=== PATIENT | male | born 2000 | race Caucasian/White ===

== ENCOUNTER 2020-07-07 14:41 | Observation (INO) ==
[2020-07-07] MEDS ORDERED: LORazepam 0.5 MG/1 ML VIAL IV STA (14:49)
[2020-07-07] MEDS ORDERED: SODIUM CHLORIDE 0.9% 1000ML 1,000 ML IV ONE (14:49)
--- NOTE | 2020-07-07 15:09 | Emergency Department Note ---
History of Present Illness General Chief complaint: Altered Mental Status Time Seen by Provider: 07/07/20 14:43 Source: patient and EMS History of Present Illness Provider complaint: Headache Onset (ago): hour(s) 1 Associated symptoms: + confusion and + headaches 20-year-old male presents emergency department via EMS for headache. Per EMS the patient was having slurred speech and right facial droop when they arrived. Patient has been having migraines and his recently placed on prednisone. Patient took his first dose of prednisone today and an hour later developed the symptoms. Patient is able to speak he is alert and oriented. Patient keeps repeatedly saying "I cannot do this" and keeps asking "am I schizophrenic?". Home Medications Medication Instructions Recorded Confirmed Type multivitamin 1 tab PO QAM 06/29/20 07/07/20 History Allergies Allergy/AdvReac Type Severity Reaction Status Date / Time No Known Allergies Allergy Unverified 06/29/20 13:10 Past Med/Surg History Medical History (Updated 07/07/20 @ 18:03 by Alden Calvo) ADHD Migraine No pertinent family history Surgical History (Updated 07/07/20 @ 15:34 by Alden Calvo) No pertinent past surgical history Social History Smoking Status: Current some day smoker Tobacco Type: E-cigarettes / Vaping Feels Safe at Home: Yes Review of Systems Unobtainable due to cognitive status Physical Exam Vital Signs Vital Signs - 24 hr 07/07/20 14:41 07/07/20 14:50 Temperature 36.8 C Temperature Source Oral Pulse Rate 102 H 102 H Respiratory Rate 20 20 Respiratory Effort / Characteristics Non-Labored Respiratory Depth Normal Blood Pressure 142/89 H Blood Pressure Mean 106 Pulse Oximetry 100 100 Oxygen Delivery Method Room Air Room Air Sepsis Recent Fever Within 48 Hours No Sepsis New/Unexplained Change in Mental Status N/A Sepsis Action Taken by Nursing No Action Required Physical Exam HENT: Exam performed. - Head: Normocephalic and atraumatic. - Right Ear: External ear normal. No mastoid tenderness. - Left Ear: External ear normal. No mastoid tenderness. - Mouth/Throat: The oropharynx is clear and moist. No trismus in the jaw. No dental abscesses or uvula swelling. No oropharyngeal exudate or tonsillar abscesses. EYES: Conjunctivae and EOM are normal. Pupils are equal, round, and reactive to light. Right eye exhibits no discharge. Left eye exhibits no discharge. No scleral icterus. NECK: Normal range of motion. Neck supple. No JVD present. No spinous process tenderness present. No carotid bruit present. No rigidity. No tracheal deviation and normal range of motion present. No Brudzinski's sign and no Kernig's sign noted. CV: Normal rate, regular rhythm, normal heart sounds and intact distal pulses. There is no peripheral edema. Palpable radial pulses bue. PULM/CHEST: Effort normal and breath sounds normal. No respiratory distress. No stridor. He has no wheezes. He has no rales. - Chest Wall: He exhibits no tenderness. ABD: The abdomen is soft. Bowel sounds are normal. He has no distension. No mass is present. There is no tenderness. There is no rebound, no guarding, no Watson's sign and no tenderness at McBurney's point. Rovsig negative. MUSC/SKEL: Normal range of motion. There is no peripheral edema, tenderness or deformity. LYMPH: No cervical adenopathy. NEURO: He is alert but appears confused. He has normal strength. No cranial nerve deficit or sensory deficit. GCS eye subscore is 4. GCS verbal subscore is 4. GCS motor subscore is 6. Cerebellar tests wnl. Patient appears to have difficulty speaking just keeps repeating "I cannot do this". SKIN: Skin is warm and dry. He is not diaphoretic. PSYCH: Patient appears anxious Course Course 1443: The patient was evaluated in room C1. A complete history and physical exam was performed Cardiac monitoring: An order was placed for continuous cardiac monitoring. The monitor shows a rate of 97 with sinus rhythm EMR reviewed. Patient was seen in the emergency department June 29, [address] of the head at that time was negative. 1503: Patient's roommate is at bedside now. Patient roommate states the patient was napping and came out of his room and said he was unable to stand up and fell to the floor. The patient reported to the roommate that he cannot feel the right side of his body and was have difficulty walking. Roommate reports his symptoms gotten better but then got worse again when EMS arrived. 1550: Vital signs stable. On reassessment, the patient is texting on his phone and asking me if I can fix the TV so he can watch golf. He is having no dysarthria, no expressive aphasia, no motor deficit, no meningeal signs. Patient states he feels much better after receiving Ativan in the IV. Patient states "I feel 100 times better and feel like I can think now". Imaging is still pending. Patient was asked to give urine sample. 1603: Spoke with the patient's father [phone] gave him update about the patient. Labs are still pending. Urine still pending. Once labs and urine are back we will discuss with neurology. 1630: Patient now reporting that his headache is returning. CTs and CT angios are within normal limits. We will give the patient migraine cocktail for possible migraine Toradol, Benadryl, and Reglan. 1738: Vital signs stable. On reassessment patient reports his headache has resolved status post Reglan IV, Benadryl IV, Toradol IV, and normal saline bolus. On repeat physical exam no meningeal signs, no focal neurological deficit. Patient is asking to eat as he states he is hungry. Prolactin is within normal limits. Lactate mildly elevated at 2.4. It is thought that the patient could be suffering from a complex migraine versus a partial seizure given his symptoms and the elevated lactic acid level. There is no concern for infectious process, no concern for meningitis/encephalitis given that the patient is afebrile, has no meningeal signs, white blood cell count 11.2, and that the patient's symptoms have improved significantly in the emergency department status post Ativan 0.5 mg, Reglan IV push, Benadryl IV push, and T oradol IV push. Patient has no physical exam findings consistent with meningitis including no nuchal rigidity. I did discuss the case with neurology on-call Dr. Maldonado and she recommends obtaining an MRI of the brain with and without contrast. I did discuss my concern with Dr. Carr about the patient having possible subclinical seizures versus complex migraines. After discussing with her, the decision was made that it would be best to admit the patient into the hospital overnight to get the MRI so that she could evaluate the patient in the morning and order a possible EEG. No antiepileptics at this time per Dr. Carr. I did discuss the case with the patient's father [phone] explained to him the plan to Dr. Carr and I have created. He is in total agreement and stated he was going to request for an EEG to be done on his son. I did discuss the plan with the patient who is also in agreement. Discussed the case with Dr. Ricks [facility] Alicia hospitalist who will evaluate the patient for admission. 1802: Discussed the case with Dr. Dale who will evaluate the patient for admission. Administered Medications Discontinued Medications Diphenhydramine HCl (Diphenhydramine 50 Mg/Ml Vial) 25 mg IV NOW STA Stop: 07/07/20 16:29 Last Admin: 07/07/20 16:39 Dose: 25 mg Documented by: [id number] Sodium Chloride (Nss 1000ml) 1,000 mls @ 999 mls/hr IV .Q1H1M ONE Stop: 07/07/20 15:49 Last Infusion: 07/07/20 16:11 Dose: 0 mls/hr Documented by: [id number] Admin: 07/07/20 15:06 Dose: 999 mls/hr Documented by: [id number] Lorazepam (Ativan) 0.5 mg in 1 mls @ 1 mls/min IV NOW STA Stop: 07/07/20 14:50 Last Admin: 07/07/20 15:05 Dose: 1 mls/min Documented by: [id number] Ioversol (Optiray 320 125ml) 117 ml IV ONCE ONE Stop: 07/07/20 15:27 Last Admin: 07/07/20 15:26 Dose: 117 ml Documented by: [id number] Ketorolac Tromethamine (Ketorolac Tromethamine 15 Mg/Ml Vial) 15 mg IV NOW STA Stop: 07/07/20 16:29 Last Admin: 07/07/20 16:39 Dose: 15 mg Documented by: [id number] Metoclopramide HCl (Metoclopramide Hcl Inj 5 Mg/Ml 2 Ml Vial) 5 mg IV ONE ONE Stop: 07/07/20 16:29 Last Admin: 07/07/20 16:39 Dose: 5 mg Documented by: [id number] Medical Decision Making Laboratory Data Result diagrams: 07/07/20 15:06 07/07/20 15:06 Lab Results 07/07/20 07/07/20 07/07/20 Range/Units 15:06 15:06 15:06 WBC 11.23 H (4.8-10.8) K/uL RBC 5.32 (4.7-6.1) M/uL Hgb 15.6 (14.0-18.0) g/dL Hct 45.7 (42-52) % MCV 85.9 (80-100) fL MCH 29.3 (25-34) pg MCHC 34.1 (32-36) g/dL RDW Std Deviation 42.9 (36.4-46.3) fL RDW Coeff of Marce 13.7 (11.5-14.5) % Plt Count 267 (130-400) K/uL MPV 9.9 (7.4-10.4) fL Immature Gran % (Auto) 0.3 % Neut % (Auto) 49.9 % Lymph % (Auto) 43.4 % Weber % (Auto) 5.4 % Eos % (Auto) 0.6 % Baso % (Auto) 0.4 % Neut # (Auto) 5.61 (1.4-6.5) K/uL Lymph # (Auto) 4.87 H (1.2-3.4) K/uL Weber # (Auto) 0.61 H (0.11-0.59) K/uL Eos # (Auto) 0.07 (0-0.5) K/uL Baso # (Auto) 0.04 (0-0.2) K/uL Immature Gran # (Auto) 0.03 H (0.00-0.02) K/uL PT 10.6 (9.0-12.0) Seconds INR 1.0 (0.9-1.1) APTT 24.7 (21.0-31.0) Seconds PTT Ratio 0.9 Sodium (136-145) mmol/L Potassium (3.5-5.1) mmol/L Chloride (98-107) mmol/L Carbon Dioxide (21-32) mmol/L Anion Gap (3-11) BUN (7-18) mg/dl Creatinine (0.6-1.4) mg/dl Est Cr Clr Drug Dosing ml/min Est GFR ( Amer) Est GFR (Non-Af Amer) BUN/Creatinine Ratio (10-20) Glucose (70-99) mg/dl Lactate (0.4-2.0) mmol/L Calcium (8.5-10.1) mg/dl Magnesium (1.8-2.4) mg/dl Total Bilirubin (0.2-1) mg/dl AST (15-37) U/L ALT (12-78) U/L Alkaline Phosphatase (45-117) U/L Troponin I (0-0.045) ng/ml Total Protein (6.4-8.2) gm/dl Albumin (3.4-5.0) gm/dl Globulin (2.5-4.0) gm/dl Albumin/Globulin Ratio (0.9-2) Prolactin ng/ml Urine Color Urine Appearance (Clear) Urine pH (4.5-7.5) Ur Specific [place] (1.000-1.030) Urine Protein (Negative) Urine Glucose (UA) (Negative) Urine Ketones (Negative) Urine Blood (Negative) Urine Nitrite (Negative) Urine Bilirubin (Negative) Urine Urobilinogen (Negative) Ur Leukocyte Esterase (Negative) Urine Opiates Screen (Neg) Ur Methadone, Qual (Neg) Urine Barbiturates (Neg) Ur Phencyclidine (PCP) (Neg) U Amphetamin/Meth Scrn (Neg) MDMA (Ecstasy) Screen (Neg) U Benzodiazepines Scrn (Neg) Ur Cocaine Metabolite (Neg) U Marijuana (THC) Screen (Neg) Ethyl Alcohol mg/dL (0-3) mg/dl COVID-19 Eval Order SARS-CoV-2 (PCR) (Negative) Influenza Type A (PCR) (Neg) Influenza Type B (PCR) (Neg) RSV (RT-PCR) (Neg) Blood Type B Positive Antibody Screen NEGATIVE 07/07/20 07/07/20 07/07/20 Range/Units 15:06 15:07 15:45 WBC (4.8-10.8) K/uL RBC (4.7-6.1) M/uL Hgb (14.0-18.0) g/dL Hct (42-52) % MCV (80-100) fL MCH (25-34) pg MCHC (32-36) g/dL RDW Std Deviation (36.4-46.3) fL RDW Coeff of Marce (11.5-14.5) % Plt Count (130-400) K/uL MPV (7.4-10.4) fL Immature Gran % (Auto) % Neut % (Auto) % Lymph % (Auto) % Weber % (Auto) % Eos % (Auto) % Baso % (Auto) % Neut # (Auto) (1.4-6.5) K/uL Lymph # (Auto) (1.2-3.4) K/uL Weber # (Auto) (0.11-0.59) K/uL Eos # (Auto) (0-0.5) K/uL Baso # (Auto) (0-0.2) K/uL Immature Gran # (Auto) (0.00-0.02) K/uL PT (9.0-12.0) Seconds INR (0.9-1.1) APTT (21.0-31.0) Seconds PTT Ratio Sodium 135 L (136-145) mmol/L Potassium 3.8 (3.5-5.1) mmol/L Chloride 103 (98-107) mmol/L Carbon Dioxide 24 (21-32) mmol/L Anion Gap 8.0 (3-11) BUN 14 (7-18) mg/dl Creatinine 0.91 (0.6-1.4) mg/dl Est Cr Clr Drug Dosing 135.6 ml/min Est GFR ( Amer) 138.2 Est GFR (Non-Af Amer) 119.2 BUN/Creatinine Ratio 15.3 (10-20) Glucose 139 H (70-99) mg/dl Lactate (0.4-2.0) mmol/L Calcium 10.2 H (8.5-10.1) mg/dl Magnesium 2.0 (1.8-2.4) mg/dl Total Bilirubin 0.3 (0.2-1) mg/dl AST 19 (15-37) U/L ALT 33 (12-78) U/L Alkaline Phosphatase 68 (45-117) U/L Troponin I < 0.015 (0-0.045) ng/ml Total Protein 8.8 H (6.4-8.2) gm/dl Albumin 4.7 (3.4-5.0) gm/dl Globulin 4.1 H (2.5-4.0) gm/dl Albumin/Globulin Ratio 1.2 (0.9-2) Prolactin ng/ml Urine Color Urine Appearance (Clear) Urine pH (4.5-7.5) Ur Specific [place] (1.000-1.030) Urine Protein (Negative) Urine Glucose (UA) (Negative) Urine Ketones (Negative) Urine Blood (Negative) Urine Nitrite (Negative) Urine Bilirubin (Negative) Urine Urobilinogen (Negative) Ur Leukocyte Esterase (Negative) Urine Opiates Screen (Neg) Ur Methadone, Qual (Neg) Urine Barbiturates (Neg) Ur Phencyclidine (PCP) (Neg) U Amphetamin/Meth Scrn (Neg) MDMA (Ecstasy) Screen (Neg) U Benzodiazepines Scrn (Neg) Ur Cocaine Metabolite (Neg) U Marijuana (THC) Screen (Neg) Ethyl Alcohol mg/dL < 3.0 (0-3) mg/dl COVID-19 Eval Order [facility]sv at [facility] SARS-CoV-2 (PCR) (Negative) Influenza Type A (PCR) (Neg) Influenza Type B (PCR) (Neg) RSV (RT-PCR) (Neg) Blood Type Antibody Screen 07/07/20 07/07/20 07/07/20 Range/Units 15:45 16:13 16:13 WBC (4.8-10.8) K/uL RBC (4.7-6.1) M/uL Hgb (14.0-18.0) g/dL Hct (42-52) % MCV (80-100) fL MCH (25-34) pg MCHC (32-36) g/dL RDW Std Deviation (36.4-46.3) fL RDW Coeff of Marce (11.5-14.5) % Plt Count (130-400) K/uL MPV (7.4-10.4) fL Immature Gran % (Auto) % Neut % (Auto) % Lymph % (Auto) % Weber % (Auto) % Eos % (Auto) % Baso % (Auto) % Neut # (Auto) (1.4-6.5) K/uL Lymph # (Auto) (1.2-3.4) K/uL Weber # (Auto) (0.11-0.59) K/uL Eos # (Auto) (0-0.5) K/uL Baso # (Auto) (0-0.2) K/uL Immature Gran # (Auto) (0.00-0.02) K/uL PT (9.0-12.0) Seconds INR (0.9-1.1) APTT (21.0-31.0) Seconds PTT Ratio Sodium (136-145) mmol/L Potassium (3.5-5.1) mmol/L Chloride (98-107) mmol/L Carbon Dioxide (21-32) mmol/L Anion Gap (3-11) BUN (7-18) mg/dl Creatinine (0.6-1.4) mg/dl Est Cr Clr Drug Dosing ml/min Est GFR ( Amer) Est GFR (Non-Af Amer) BUN/Creatinine Ratio (10-20) Glucose (70-99) mg/dl Lactate (0.4-2.0) mmol/L Calcium (8.5-10.1) mg/dl Magnesium (1.8-2.4) mg/dl Total Bilirubin (0.2-1) mg/dl AST (15-37) U/L ALT (12-78) U/L Alkaline Phosphatase (45-117) U/L Troponin I (0-0.045) ng/ml Total Protein (6.4-8.2) gm/dl Albumin (3.4-5.0) gm/dl Globulin (2.5-4.0) gm/dl Albumin/Globulin Ratio (0.9-2) Prolactin ng/ml Urine Color Yellow Urine Appearance Clear (Clear) Urine pH 7.5 (4.5-7.5) Ur Specific [place] 1.041 H (1.000-1.030) Urine Protein Negative (Negative) Urine Glucose (UA) Negative (Negative) Urine Ketones Negative (Negative) Urine Blood Negative (Negative) Urine Nitrite Negative (Negative) Urine Bilirubin Negative (Negative) Urine Urobilinogen Negative (Negative) Ur Leukocyte Esterase Negative (Negative) Urine Opiates Screen Neg (Neg) Ur Methadone, Qual Neg (Neg) Urine Barbiturates Neg (Neg) Ur Phencyclidine (PCP) Neg (Neg) U Amphetamin/Meth Scrn Neg (Neg) MDMA (Ecstasy) Screen Neg (Neg) U Benzodiazepines Scrn Neg (Neg) Ur Cocaine Metabolite Neg (Neg) U Marijuana (THC) Screen Neg (Neg) Ethyl Alcohol mg/dL (0-3) mg/dl COVID-19 Eval Order SARS-CoV-2 (PCR) NEGATIVE (Negative) Influenza Type A (PCR) Negative (Neg) Influenza Type B (PCR) Negative (Neg) RSV (RT-PCR) Negative (Neg) Blood Type Antibody Screen 07/07/20 07/07/20 Range/Units 16:18 16:18 WBC (4.8-10.8) K/uL RBC (4.7-6.1) M/uL Hgb (14.0-18.0) g/dL Hct (42-52) % MCV (80-100) fL MCH (25-34) pg MCHC (32-36) g/dL RDW Std Deviation (36.4-46.3) fL RDW Coeff of Marce (11.5-14.5) % Plt Count (130-400) K/uL MPV (7.4-10.4) fL Immature Gran % (Auto) % Neut % (Auto) % Lymph % (Auto) % Weber % (Auto) % Eos % (Auto) % Baso % (Auto) % Neut # (Auto) (1.4-6.5) K/uL Lymph # (Auto) (1.2-3.4) K/uL Weber # (Auto) (0.11-0.59) K/uL Eos # (Auto) (0-0.5) K/uL Baso # (Auto) (0-0.2) K/uL Immature Gran # (Auto) (0.00-0.02) K/uL PT (9.0-12.0) Seconds INR (0.9-1.1) APTT (21.0-31.0) Seconds PTT Ratio Sodium (136-145) mmol/L Potassium (3.5-5.1) mmol/L Chloride (98-107) mmol/L Carbon Dioxide (21-32) mmol/L Anion Gap (3-11) BUN (7-18) mg/dl Creatinine (0.6-1.4) mg/dl Est Cr Clr Drug Dosing ml/min Est GFR ( Amer) Est GFR (Non-Af Amer) BUN/Creatinine Ratio (10-20) Glucose (70-99) mg/dl Lactate 2.4 H* (0.4-2.0) mmol/L Calcium (8.5-10.1) mg/dl Magnesium (1.8-2.4) mg/dl Total Bilirubin (0.2-1) mg/dl AST (15-37) U/L ALT (12-78) U/L Alkaline Phosphatase (45-117) U/L Troponin I (0-0.045) ng/ml Total Protein (6.4-8.2) gm/dl Albumin (3.4-5.0) gm/dl Globulin (2.5-4.0) gm/dl Albumin/Globulin Ratio (0.9-2) Prolactin 12.53 ng/ml Urine Color Urine Appearance (Clear) Urine pH (4.5-7.5) Ur Specific [place] (1.000-1.030) Urine Protein (Negative) Urine Glucose (UA) (Negative) Urine Ketones (Negative) Urine Blood (Negative) Urine Nitrite (Negative) Urine Bilirubin (Negative) Urine Urobilinogen (Negative) Ur Leukocyte Esterase (Negative) Urine Opiates Screen (Neg) Ur Methadone, Qual (Neg) Urine Barbiturates (Neg) Ur Phencyclidine (PCP) (Neg) U Amphetamin/Meth Scrn (Neg) MDMA (Ecstasy) Screen (Neg) U Benzodiazepines Scrn (Neg) Ur Cocaine Metabolite (Neg) U Marijuana (THC) Screen (Neg) Ethyl Alcohol mg/dL (0-3) mg/dl COVID-19 Eval Order SARS-CoV-2 (PCR) (Negative) Influenza Type A (PCR) (Neg) Influenza Type B (PCR) (Neg) RSV (RT-PCR) (Neg) Blood Type Antibody Screen Imaging Data Radiologist's Impression: Head CT 07/07/20 14:[address], HEAD & NECK CTA HISTORY: Right-sided numbness. Difficulty speaking. Stroke Like Symptoms TECHNIQUE: Multiaxial CT images of the head were performed both before and after the intravenous administration of contrast to evaluate the major cerebral vessels. Multiaxial CT images of the neck were also performed following the intravenous administration of contrast to evaluate the major cervical vessels. Maximum intensity projection images were also obtained. A dose lowering technique was utilized adhering to the principles of ALARA. COMPARISON: Head CT 06/29/2020. FINDINGS: Head CT: There is no mass, hematoma, midline shift, or acute infarct. Stable retention cyst within the right sphenoid sinus. Head CTA: Visualized intracranial internal carotid arteries, distal vertebral arteries, and basilar artery are widely patent. There is no significant stenosis, occlusion, or aneurysm seen within the bilateral ACAs, MCAs, or occupational therapy co director. The major dural venous sinuses are patent. Neck CTA: The aortic arch and proximal great vessels are widely patent. There is no significant stenosis, occlusion, or dissection identified within the bilateral common carotid, internal carotid, or vertebral arteries. IMPRESSION: 1. No significant stenosis, occlusion, or aneurysm within the [place]. 2. No significant stenosis, occlusion, or dissection identified within the carotid or vertebral arteries. 3. No acute intracranial abnormality. ACT 112: Negative or not required by law. Electronically signed by: Andrew Johnson M.D. 07/07/2020 3:48 PM Head CTA 07/07/20 14:[address], HEAD & NECK CTA HISTORY: Right-sided numbness. Difficulty speaking. Stroke Like Symptoms TECHNIQUE: Multiaxial CT images of the head were performed both before and after the intravenous administration of contrast to evaluate the major cerebral vessels. Multiaxial CT images of the neck were also performed following the intravenous administration of contrast to evaluate the major cervical vessels. Maximum intensity projection images were also obtained. A dose lowering technique was utilized adhering to the principles of ALARA. COMPARISON: Head CT 06/29/2020. FINDINGS: Head CT: There is no mass, hematoma, midline shift, or acute infarct. Stable retention cyst within the right sphenoid sinus. Head CTA: Visualized intracranial internal carotid arteries, distal vertebral arteries, and basilar artery are widely patent. There is no significant stenosis, occlusion, or aneurysm seen within the bilateral ACAs, MCAs, or occupational therapy co director. The major dural venous sinuses are patent. Neck CTA: The aortic arch and proximal great vessels are widely patent. There is no significant stenosis, occlusion, or dissection identified within the bilateral common carotid, internal carotid, or vertebral arteries. IMPRESSION: 1. No significant stenosis, occlusion, or aneurysm within the [place]. 2. No significant stenosis, occlusion, or dissection identified within the carotid or vertebral arteries. 3. No acute intracranial abnormality. ACT 112: Negative or not required by law. Electronically signed by: Andrew Johnson M.D. 07/07/2020 3:48 PM Neck CTA 07/07/20 14:[address], HEAD & NECK CTA HISTORY: Right-sided numbness. Difficulty speaking. Stroke Like Symptoms TECHNIQUE: Multiaxial CT images of the head were performed both before and after the intravenous administration of contrast to evaluate the major cerebral vessels. Multiaxial CT images of the neck were also performed following the intravenous administration of contrast to evaluate the major cervical vessels. Maximum intensity projection images were also obtained. A dose lowering techniqu e was utilized adhering to the principles of ALARA. COMPARISON: Head CT 06/29/2020. FINDINGS: Head CT: There is no mass, hematoma, midline shift, or acute infarct. Stable retention cyst within the right sphenoid sinus. Head CTA: Visualized intracranial internal carotid arteries, distal vertebral arteries, and basilar artery are widely patent. There is no significant stenosis, occlusion, or aneurysm seen within the bilateral ACAs, MCAs, or occupational therapy co director. The major dural venous sinuses are patent. Neck CTA: The aortic arch and proximal great vessels are widely patent. There is no significant stenosis, occlusion, or dissection identified within the bilateral common carotid, internal carotid, or vertebral arteries. IMPRESSION: 1. No significant stenosis, occlusion, or aneurysm within the [place]. 2. No significant stenosis, occlusion, or dissection identified within the carotid or vertebral arteries. 3. No acute intracranial abnormality. ACT 112: Negative or not required by law. Electronically signed by: Andrew Johnson M.D. 07/07/2020 3:48 PM ECG Data Indication: + other (CASPER) Rate (beats per minute): 97 Rhythm: + normal sinus ECG Intervals/blocks: + Normal QRS, + Normal NV and + Normal QT-c ECG ST segments: + Normal ST segments MDM Narrative 1443: The patient was evaluated in room C1. A complete history and physical exam was performed Cardiac monitoring: An order was placed for continuous cardiac monitoring. The monitor shows a rate of 97 with sinus rhythm EMR reviewed. Patient was seen in the emergency department June 29, [address] of the head at that time was negative. 1503: Patient's roommate is at bedside now. Patient roommate states the patient was napping and came out of his room and said he was unable to stand up and fell to the floor. The patient reported to the roommate that he cannot feel the right side of his body and was have difficulty walking. Roommate reports his symptoms gotten better but then got worse again when EMS arrived. 1550: Vital signs stable. On reassessment, the patient is texting on his phone and asking me if I can fix the TV so he can watch golf. He is having no dysarthria, no expressive aphasia, no motor deficit, no meningeal signs. Patient states he feels much better after receiving Ativan in the IV. Patient states "I feel 100 times better and feel like I can think now". Imaging is still pending. Patient was asked to give urine sample. 1603: Spoke with the patient's father [phone] gave him update about the hector ent. Labs are still pending. Urine still pending. Once labs and urine are back we will discuss with neurology. 1630: Patient now reporting that his headache is returning. CTs and CT angios are within normal limits. We will give the patient migraine cocktail for possible migraine Toradol, Benadryl, and Reglan. 1738: Vital signs stable. On reassessment patient reports his headache has resolved status post Reglan IV, Benadryl IV, Toradol IV, and normal saline bolus. On repeat physical exam no meningeal signs, no focal neurological deficit. Patient is asking to eat as he states he is hungry. Prolactin is within normal limits. Lactate mildly elevated at 2.4. It is thought that the patient could be suffering from a complex migraine versus a partial seizure given his symptoms and the elevated lactic acid level. There is no concern for infectious process, no concern for meningitis/encephalitis given that the patient is afebrile, has no meningeal signs, white blood cell count 11.2, and that the patient's symptoms have improved significantly in the emergency department status post Ativan 0.5 mg, Reglan IV push, Benadryl IV push, and Toradol IV push. Patient has no physical exam findings consistent with meningitis including no nuchal rigidity. I did discuss the case with neurology on-call Dr. Maldonado and she recommends obtaining an MRI of the brain with and without contrast. I did discuss my concern with Dr. Carr about the patient having possible subclinical seizures versus complex migraines. After discussing with her, the decision was made that it would be best to admit the patient into the hospital overnight to get the MRI so that she could evaluate the patient in the morning and order a possible EEG. No antiepileptics at this time per Dr. Carr. I did discuss the case with the patient's father [phone] explained to him the plan to Dr. Carr and I have created. He is in total agreement and stated he was going to request for an EEG to be done on his son. I did discuss the plan with the patient who is also in agreement. Discussed the case with Dr. Ricks [facility] hospitalist who will evaluate the patient for admission. 1802: Discussed the case with Dr. Dale who will evaluate the patient for admission. Impression & Plan Headache, Seizure-like activity Discharge Plan Visit Data Chief Complaint: Altered Mental Status ED Provider: Alden Calvo Discharge Problem: Headache, Seizure-like activity Patient Disposition: Admitted As Inpatient Forms Stand Alone Forms: My [facility] Prescriptions Prescriptions: No Action multivitamin Tablet 1 tab PO QAM RF: 0 Referrals Referrals: [facility] [Primary Care Provider] - Discharge Problem: Headache Qualifiers: Headache type: unspecified Headache chronicity pattern: unspecified pattern Intractability: not intractable Qualified Code(s): R51.9 - Headache, unspecified
[2020-07-07 15:20] LABS: Basophils # (auto) 0.04 K/uL (0-0.2); Basophils % (auto) 0.4 %; Eosinophils # (auto) 0.07 K/uL (0-0.5); Eosinophils % (auto) 0.6 %; Hematocrit (blood only) 45.7 % (42-52); Hemoglobin 15.6 g/dL (14.0-18.0); Immature Granulocytes # (auto) 0.03 K/uL (0.00-0.02); Immature Granulocytes % (auto) 0.3 %; Lymphocytes # (auto) 4.87 K/uL (1.2-3.4); Lymphocytes % (auto) 43.4 %; Mean Corpuscular Hemoglobin 29.3 pg (25-34); Mean Corpuscular Hgb Conc 34.1 g/dL (32-36); Mean Corpuscular Volume 85.9 fL (80-100); Mean Platelet Volume 9.9 fL (7.4-10.4); Monocytes # (auto) 0.61 K/uL (0.11-0.59); Monocytes % (auto) 5.4 %; Neutrophils # (auto) 5.61 K/uL (1.4-6.5); Neutrophils % (auto) 49.9 %; Platelet Count 267 K/uL (130-400); RDW Coefficient of Variation 13.7 % (11.5-14.5); RDW Standard Deviation 42.9 fL (36.4-46.3); Red Blood Count 5.32 M/uL (4.7-6.1); White Blood Count 11.23 K/uL (4.8-10.8)
[2020-07-07] MEDS ORDERED: OPTIRAY 320 125ml IV ONE (15:26)
[2020-07-07 15:44] LABS: Alanine Aminotransferase 33 U/L (12-78); Albumin Level 4.7 gm/dl (3.4-5.0); Aspartate Aminotransferase 19 U/L (15-37); BUN Creatinine Ratio 15.3 (10-20); Blood Urea Nitrogen 14 mg/dl (7-18); Calcium 10.2 mg/dl (8.5-10.1); Carbon Dioxide 24 mmol/L (21-32); Chloride 103 mmol/L (98-107); Creatinine Clr Calc Pharmacy 135.6 ml/min; Est GFR (African American) 138.2; Est GFR (Non-African American) 119.2; Glucose 139 mg/dl (70-99); Potassium 3.8 mmol/L (3.5-5.1); Sodium 135 mmol/L (136-145)
[2020-07-07 15:49] LABS: Albumin Globulin Ratio 1.2 (0.9-2); Alkaline Phosphatase 68 U/L (45-117); Bilirubin,Total 0.3 mg/dl (0.2-1); Globulin 4.1 gm/dl (2.5-4.0); Total Protein 8.8 gm/dl (6.4-8.2); Troponin I < 0.015 ng/ml (0-0.045)
--- NOTE | 2020-07-07 15:49 | CT Scan Report ---
NONCONTRAST HEAD CT, HEAD & NECK CTA HISTORY: Right-sided numbness. Difficulty speaking. Stroke Like Symptoms TECHNIQUE: Multiaxial CT images of the head were performed both before and after the intravenous admi nistration of contrast to evaluate the major cerebral vessels. Multiaxial CT images of the neck were also performed following the intravenous administration of contrast to evaluate the major cervical ve ssels. Maximum intensity projection images were also obtained. A dose lowering technique was utilized adhering to the principles of ALARA. COMPARISON: Head CT 06/29/2020. FINDINGS: Head CT: There is no mass, hematoma, midline shift, or acute infarct. Stable retention cyst within th e right sphenoid sinus. Head CTA: Visualized intracranial internal carotid arteries, distal vertebral arteries, and basilar a rtery are widely patent. There is no significant stenosis, occlusion, or aneurysm seen within the pedro ateral ACAs, MCAs, or wet pour mixer. The major dural venous sinuses are patent. Neck CTA: The aortic arch and proximal great vessels are widely patent. There is no significant sten osis, occlusion, or dissection identified within the bilateral common carotid, internal carotid, or v ertebral arteries. IMPRESSION: 1. No significant stenosis, occlusion, or aneurysm within the [place]. 2. No significant stenosis, occlusion, or dissection identified within the carotid or vertebral arter ies. 3. No acute intracranial abnormality. ACT 112: Negative or not required by law. Electronically signed by: Andrew Johnson M.D. 07/07/2020 3:48 PM
--- NOTE | 2020-07-07 15:49 | CT Scan Report ---
NONCONTRAST HEAD CT, HEAD & NECK CTA HISTORY: Right-sided numbness. Difficulty speaking. Stroke Like Symptoms TECHNIQUE: Multiaxial CT images of the head were performed both before and after the intravenous admi nistration of contrast to evaluate the major cerebral vessels. Multiaxial CT images of the neck were also performed following the intravenous administration of contrast to evaluate the major cervical ve ssels. Maximum intensity projection images were also obtained. A dose lowering technique was utilized adhering to the principles of ALARA. COMPARISON: Head CT 06/29/2020. FINDINGS: Head CT: There is no mass, hematoma, midline shift, or acute infarct. Stable retention cyst within th e right sphenoid sinus. Head CTA: Visualized intracranial internal carotid arteries, distal vertebral arteries, and basilar a rtery are widely patent. There is no significant stenosis, occlusion, or aneurysm seen within the pedro ateral ACAs, MCAs, or credit risk specialist. The major dural venous sinuses are patent. Neck CTA: The aortic arch and proximal great vessels are widely patent. There is no significant sten osis, occlusion, or dissection identified within the bilateral common carotid, internal carotid, or v ertebral arteries. IMPRESSION: 1. No significant stenosis, occlusion, or aneurysm within the [place]. 2. No significant stenosis, occlusion, or dissection identified within the carotid or vertebral arter ies. 3. No acute intracranial abnormality. ACT 112: Negative or not required by law. Electronically signed by: Andrew Johnson M.D. 07/07/2020 3:48 PM
--- NOTE | 2020-07-07 15:49 | CT Scan Report ---
NONCONTRAST HEAD CT, HEAD & NECK CTA HISTORY: Right-sided numbness. Difficulty speaking. Stroke Like Symptoms TECHNIQUE: Multiaxial CT images of the head were performed both before and after the intravenous admi nistration of contrast to evaluate the major cerebral vessels. Multiaxial CT images of the neck were also performed following the intravenous administration of contrast to evaluate the major cervical ve ssels. Maximum intensity projection images were also obtained. A dose lowering technique was utilized adhering to the principles of ALARA. COMPARISON: Head CT 06/29/2020. FINDINGS: Head CT: There is no mass, hematoma, midline shift, or acute infarct. Stable retention cyst within th e right sphenoid sinus. Head CTA: Visualized intracranial internal carotid arteries, distal vertebral arteries, and basilar a rtery are widely patent. There is no significant stenosis, occlusion, or aneurysm seen within the pedro ateral ACAs, MCAs, or stock raiser. The major dural venous sinuses are patent. Neck CTA: The aortic arch and proximal great vessels are widely patent. There is no significant sten osis, occlusion, or dissection identified within the bilateral common carotid, internal carotid, or v ertebral arteries. IMPRESSION: 1. No significant stenosis, occlusion, or aneurysm within the [place]. 2. No significant stenosis, occlusion, or dissection identified within the carotid or vertebral arter ies. 3. No acute intracranial abnormality. ACT 112: Negative or not required by law. Electronically signed by: Andrew Johnson M.D. 07/07/2020 3:48 PM
[2020-07-07 16:00] LABS: Partial Thromboplastin Ratio 0.9; Partial Thromboplastin Time 24.7 Seconds (21.0-31.0); Prothrombin Time 10.6 Seconds (9.0-12.0)
[2020-07-07] MEDS ORDERED: diphenhydrAMINE 50 MG/ML VIAL IV STA (16:28)
[2020-07-07] MEDS ORDERED: KETOROLAC TROMETHAMINE 15 MG/ML VIAL IV STA (16:28)
[2020-07-07] MEDS ORDERED: METOCLOPRAMIDE HCL INJ 5 MG/ML 2 ML VIAL IV ONE (16:28)
[2020-07-07 16:34] LABS: Influenza A virus by PCR Negative (Neg); Influenza B virus by PCR Negative (Neg); RSV by PCR Negative (Neg); SARS CoV2 RNA(COVID-19) InHosp NEGATIVE (Negative)
[2020-07-07 16:55] LABS: Appearance Urine Clear (Clear); Bilirubin Urine Negative (Negative); Blood Urine Negative (Negative); Color Urine Yellow; Glucose Urine UA Negative (Negative); Ketones Urine Negative (Negative); Leukocyte Esterase Urine Negative (Negative); Nitrite Urine Negative (Negative); Protein Urine Negative (Negative); Specific Gravity Urine 1.041 (1.000-1.030); Urobilinogen Urine Negative (Negative); pH Urine 7.5 (4.5-7.5)
[2020-07-07 17:34] LABS: Amphetamines+Metham, Urine Neg (Neg); Barbiturates, Urine Neg (Neg); Benzodiazepine, Urine Neg (Neg); Cocaine, Urine Neg (Neg); MDMA (Ecstacy), Urine Neg (Neg); Methadone, Urine Neg (Neg); Opiate, Urine Neg (Neg); Phencyclidine, Urine Neg (Neg)
[2020-07-07] MEDS ORDERED: SODIUM CHLORIDE 0.9% 1000ML 1,000 ML IV SCH (17:45)
[2020-07-07] MEDS ORDERED: MoRPHine SULFATE 4 MG/ML 1 ML CARP\\VIAL ONE (18:28)
[2020-07-07] MEDS ORDERED: LORazepam 2 MG/4 ML VIAL ONE (18:28)
[2020-07-07] MEDS ORDERED: LIDOCAINE HCL 1% 20 ML VIAL ONE ×2 (18:28→18:44)
[2020-07-07] MEDS ORDERED: ONDANSETRON INJ 2 MG/ML 2 ML VIAL ONE (18:41)
--- NOTE | 2020-07-07 18:47 | History & Physical Report ---
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 Normal prolactin Negative COVID and flu screen. Urine tox - negative Negative prolactin. Mildly elevated WBC with increased lymphocytes, Elevated lactate. Neg CT head, Neg CT head/neck angiogram - LP pending - to be done by radiology at 9pm - results to be followed by night team. - Pending MRI and EEG - start empiric antibiotics - IV vanco/rocephin/acyclovir in ED. - Neurology consulted. - Dysphagia screen - if negative - diet. - Headache control with IV toradol. - empiric thiamine IV Full code NSS with 20k at 100ml/hr, NPO until dysphagia screen done - then regular diet. 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 He has taken tylenol in past with improvement in headache. Before the ED visit he noted some tremors as well and had not been sleeping well over last several weeks. He had taken decongestants for possible sinus headache as recommended by the urgent care clinic. Due to persistent headache, he was referred to ED by his PCP in [place]. He had evaluation done with imaging which were negative. He received treatment for migraine and discharged home. In the interim he was placed on steroids by his PCP. He took his first dose today at noon followed by having having numbness/tingling along with headache on half of his face and his toes. So he called EMS and was brought to the ED. Per EMS the patient was having slurred speech and right facial droop when they arrived. Per ED physician note - Patient is able to speak he is alert and oriented. Patient keeps repeatedly saying "I cannot do this" and keeps asking "am I schizophrenic?". He received IV toradol, benadryl, reglan and ativan so far in the ED. Neurologist - Dr. Flowers was contacted and CT head and neck angiogram, MRI brain and EEG was recommended. At the time of my visit - patient was very restless in bed and his speech was slurred. He was cooperative and able to answer questions but kept closing his eyes during conversation. Allergies Allergy/AdvReac Type Severity Reaction Status Date / Time No Known Allergies Allergy Unverified 06/29/20 13:10 Home Medications Medication Instructions Recorded Confirmed Type multivitamin 1 tab PO QAM 06/29/20 07/07/20 History Past Med/Surg History Medical History (Updated 07/08/20 @ 11:43 by Sanjiv Tovar MD) ADHD Migraine No pertinent family history Numbness and tingling Restlessness Surgical History No pertinent past surgical history Family History (Updated 07/07/20 @ 21:42 by Aracelis Dale MD) Denies family history of Cerebral aneurysm Social History Smoking Status: Current every day smoker Tobacco Type: E-cigarettes / Vaping Hx Alcohol Use: Yes Alcohol type: beer and hard liquor Hx Substance Use: No Preferred Language: Mongolian Communication Ability: Effective Soybean Grower Required: No Beliefs That Will Affect Care: None Current Living Situation: Other Current Living Situation Comment: Roomates Other Information That Helps Us Care for You: No Feels Safe at Home: Yes Safety Concerns: Feels Safe At This Time Assistive Devices: None Review of Systems Review of Systems: All systems reviewed & are unremarkable except as noted in HPI & below Patient very restless during exam and so unable assess the validity of response. Physical Exam Constitutional: well developed, well nourished and + acute distress Restless in bed. Eyes: PERRL, conjunctivae normal, anicteric sclerae ENMT: external ear and nose normal, oropharynx normal Neck: trachea midline, no thyromegaly Respiratory: normal respiratory effort, lungs clear to auscultation Cardiovascular: RRR, no murmur, no edema Chest (Breasts): Chest: normal inspection of chest Gastrointestinal (Abdomen): normal bowel sounds, soft, nontender, no hepatosplenomegaly Musculoskeletal: no cyanosis or clubbing, extremities motor strength 5/5 Skin: no rashes, warm and dry Neurologic: patellar DTR's 2+ bilat, sensation intact Unable to do extensive neuro exam due to him being restless in bed. Results & Data Results & Data ([facility]) Vital Signs (Past 12 Hours) Vital Signs Temp Pulse Resp BP Pulse Ox 07/07/20 14:50 102 H 20 100 07/07/20 14:41 36.8 C 102 H 20 142/89 H 100 (1) Headache Headache chronicity pattern: unspecified pattern Headache type: unspecified Intractability: not intractable Qualified Code(s): R51.9 - Headache, unspecified
[2020-07-07] MEDS: SODIUM CHLORIDE 0.9% 1000ML 1,000 ML IV SCH ×2 (18:50→22:38)
[2020-07-07] MEDS ORDERED: cefTRIAXone SODIUM 2,000 MG/70 ML BAG IV STA (19:13)
[2020-07-07] MEDS ORDERED: VANCOMYCIN HCL 2,000 MG in SODIUM CHLORIDE 0.9% 500 ML IV ONE (19:13)
[2020-07-07] MEDS ORDERED: VANCOMYCIN CONSULT ACTIVE PRN (19:13)
[2020-07-07] MEDS ORDERED: ACYCLOVIR SOD 750 MG in DEXTROSE 5% 100 ML IV ONE (19:13)
[2020-07-07] MEDS ORDERED: GADOBUTROL 65ML VIAL IV ONE (20:50)
[2020-07-07 21:16] LABS: Appearance CSF Bloody; CSF Count Tube # 3; CSF Xanthrochromic Xanthochromic; Color CSF Red
[2020-07-07 21:17] LABS: Red Blood Cell CSF (A) 40900 /uL (0-)
[2020-07-07 21:19] LABS: Total Protein CSF 610.4 mg/dl (15-45)
[2020-07-07 21:20] LABS: White Blood Cell CSF (A) 1404 /uL (0-5)
[2020-07-07] MEDS ORDERED: dexAMETHasone 4 MG in SYRINGE 0 ML IV SCH (21:30)
[2020-07-07] MEDS ORDERED: cefTRIAXone SODIUM 2,000 MG in DEXTROSE 5% 50 ML IV SCH (21:30)
[2020-07-07] MEDS ORDERED: ACYCLOVIR SOD 750 MG in DEXTROSE 5% 100 ML IV SCH (21:30)
--- NOTE | 2020-07-07 21:35 | Communication Note ---
Date of Service: July 07, 2020 20 yo M admitted for AMS, headache, concern for facial droop. Had LP prior to moving to telemetry floor which showed WBC count 1404, elevated total protein, other CSF studies pending. Patient placed on meningitic dosing of ceftriaxone, acyclovir, vancomycin. Also started on Decadron 4mg IV q6h. Resident Activity Tracking Resident Involvement: Resident Care Provided Care Provided: Adult [facility]
--- NOTE | 2020-07-07 21:47 | Fluoroscopy Report ---
FLUOROSCOPICALLY GUIDED LUMBAR PUNCTURE CLINICAL HISTORY: Evaluate for infection. FLUOROSCOPY TIME: 0.9 minutes NUMBER OF FLUOROSCOPIC IMAGES: 5. PROCEDURE: Lumbar puncture was attempted in the emergency department. This was not successful and the refore the patient was brought to the Radiology Department for lumbar puncture under fluoroscopy. The procedure, risks and benefits were discussed with the patient including the risk of spinal headache, bleeding and infection. The patient agreed to the procedure and informed written consent was obtaine d. The procedure was performed by Dr. Coley following a timeout. The right L4-L5 interlaminar spa ce was targeted. Skin overlying the space was prepped and draped in sterile fashion and local anesthe davin was achieved with 1% lidocaine. Under intermittent fluoroscopic guidance, a 3 1/2 inch, 22-gauge spinal needle was utilized. Positioning within the canal was confirmed on lateral projection. No cere brospinal fluid was noted suggestive of a dry tap. Therefore, the L3-L4 right interlaminar space was targeted with a 3 1/2 inch, 20-gauge spinal needle. There was immediate return of bloody cerebrospina l fluid. Only 5 cc of fluid could be collected. This was placed in 3 vials and sent to the laboratory as ordered. The needle was drawn. The patient tolerated the procedure well and no immediate complica tions were evident. IMPRESSION: 1. Successful fluoroscopically guided lumbar puncture with collection of 5 cc of bloody cerebrospinal fluid. Fluid sent to the laboratory as ordered. 2. Initial attempt at the L4-L5 level demonstrated a dry tap. Therefore, the procedure was performed at the L3-L4 level, as described above. ACT 112: Negative or not required by law. Electronically signed by: Keo Coley M.D. 07/07/2020 9:46 PM
--- NOTE | 2020-07-07 21:52 | Magnetic Resonance Report ---
MRI OF THE BRAIN WITHOUT AND WITH IV CONTRAST CLINICAL HISTORY: Headache. COMPARISON STUDY: Head CT and CTA of the head performed earlier today. TECHNIQUE: Utilizing a 1.5 Racheal magnet and dedicated coil, multiplanar, multiecho imaging of the br ain was performed pre and postcontrast administration. IV administration of 7.5 mL of Gadavist contr ast was uneventful. FINDINGS: There are no foci of restricted diffusion to suggest acute infarct. No acute intracranial h emorrhage, midline shift or mass effect is present. Brain volume is normal. Ventricular system is nor mal. Basal cisterns are patent. There are no extra-axial collections. Flow-voids for the major intrac ranial vessels are present. There is no intracranial mass or pathologic enhancement. No parenchymal s ignal abnormality is identified. Calvarial signal is normal. Orbits are unremarkable. There is mild e thmoid and sphenoid sinus mucosal thickening. There is no fluid within the mastoid air cells. Postcon trast images are mildly compromised by motion artifact. IMPRESSION: Unremarkable MRI of the brain. ACT 112: Negative or not required by law. Electronically signed by: Keo Coley M.D. 07/07/2020 9:51 PM
[2020-07-07] MEDS ORDERED: SODIUM CHLORIDE 0.65% NA SOLN 45 ML (OCEAN) ONE (22:03)
[2020-07-07 22:17] LABS: Cryptococcus neoformans/ga PCR Not Detected (NotDetected); Cytomegalovirus PCR Not Detected (NotDetected); Enterovirus PCR Not Detected (NotDetected); Escherichia coli K1 PCR Not Detected (NotDetected); Haemophilius influenzae PCR Not Detected (NotDetected); Herpes Simplex Virus 1 PCR Not Detected (NotDetected); Herpes Simplex Virus 2 PCR Not Detected (NotDetected); Human Herpes Virus 6 PCR Not Detected (NotDetected); Human Parechovirus PCR Not Detected (NotDetected); Listeria monocytogenes PCR Not Detected (NotDetected); Neisseria meningitidis PCR Not Detected (NotDetected); Streptococcus agalactiae PCR Not Detected (NotDetected); Streptococcus pneumoniae PCR Not Detected (NotDetected); Varicella Zoster Virus PCR Not Detected (NotDetected)
[2020-07-07] MEDS ORDERED: KETOROLAC TROMETHAMINE 15 MG/ML VIAL IV PRN (22:30)
[2020-07-07] MEDS ORDERED: ONDANSETRON INJ 2 MG/ML 2 ML VIAL IV PRN (22:30)
[2020-07-07] MEDS ORDERED: ACETAMINOPHEN 325 MG TAB PO PRN (22:30)
[2020-07-07] MEDS ORDERED: THIAMINE HCL 100 MG in SYRINGE 9 ML IV ONE (22:45)
[2020-07-07] MEDS: D5NSS + 20MEQ KCL 20 MEQ/1,000 ML BAG IV SCH (22:57)
[2020-07-07] MEDS ORDERED: dexAMETHasone 4 MG in SYRINGE 0 ML IV ONE (23:00)
[2020-07-08] MEDS ORDERED: ACYCLOVIR SOD 750 MG in DEXTROSE 5% 100 ML IV SCH (06:00)
[2020-07-08] MEDS: dexAMETHasone 4 MG in SYRINGE 0 ML IV SCH ×3 (06:04→17:19)
[2020-07-08] MEDS: ACYCLOVIR SOD 750 MG in DEXTROSE 5% 250 ML IV SCH ×3 (06:05→21:29)
--- NOTE | 2020-07-08 07:35 | Electrocardiogram Report ---
Test Reason : Blood Pressure : / mmHG Vent. Rate : 097 BPM Atrial Rate : 097 BPM P-R Int : 186 ms QRS Dur : 086 ms QT Int : 366 ms P-R-T Axes : 070 077 024 degrees QTc Int : 464 ms Normal sinus rhythm Normal ECG No previous ECGs available Confirmed by Albino Lopez ([id number]) on 07/08/2020 7:35:31 AM Referred By: REFERRED SELF Confirmed By:Albino Lopez
--- NOTE | 2020-07-08 07:52 | Hospitalist Progress Note ---
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 He ended following up with his family medicine provider who had recommended a trial of 30 mg of prednisone. After taking the medication the patient began to experience numbness and tingling, restless, and his headache returned. He was reevaluated in the emergency department and there was concern for altered mental status routine labs were obtained including pro calcitonin, Covid, flu, urine tox, CBC, CMP and within normal limits with the exception of a lactate of 3.1. Given his history of headaches, altered mental status on presentation, and elevated lactate a work-up for meningitis was started. Brain MRI was negative, LP was performed demonstrating traumatic tap, xanthochromia, elevated total protein, and elevated white blood cells. Viral, bacterial, and fungal PCR was negative, and cultures are pending. Neurology was consulted and given the degree of xanthochromia and elevation in white blood cells they feel as if the patient is contracted viral meningitis and I am recommending consultation with ID.. -Neurology consulted following recommendations -Infectious disease consulted appreciate recommendations -Continue CTX/Vancomycin pending culture resolution -Continue dexamethasone pending culture resolution -Continue acyclovir pending ID recommendations -Headache control with IV toradol. FENa: Regular diet Code Status: Full code DVT PPX: Not indicated at present PT/OT: Not indicated Dispo: Telemetry Sanjiv Tovar MD PGY 2, FCM This chart was completed utilizing [employer] voice recognition software. Grammatical errors, random word insertions, pronoun errors, and in complete sentences are an occasional consequence of the system. Any questions or concerns about the content, text, or information contained within the body of this dictation should be addressed directly to the physician for clarification. (2) Numbness and tingling: (3) Restlessness: (4) Elevated serum lactate dehydrogenase: (5) Viral meningitis: Admission and Anticipated Discharge Date Admission Date: July 07, 2020 Supervising Physician Co-Signing Physician Notes Resident Physician Supervision Note: I independently interviewed and examined the patient and verified the mccloud history and physical, reviewed labs and image studies, discussed the case with the resident Dr. Sanjiv Tovar and agree with the findings and care plan. Subjective Patient lying in bed no acute distress, reporting no acute events overnight. Patient reports tolerating his diet, voiding, stooling, sleeping well. Patient denies any acute pain, vision changes or other concerning signs or symptoms. All questions answered acute concerns relate to laboratory results. Physical Exam Physical Exam: General: No acute distress HEENT: Normocephalic atraumatic Neck: No significant lymphadenopathy, trachea midline, normal to visual inspection Cardiac: Regular rate and rhythm, normal S1, normal S2, I did not appreciated any significant murmurs rubs or gallops, I did not appreciate any significant pedal edema, No calf tenderness, capillary refill is less than 3 seconds Respiratory: Clear to auscultation bilaterally with symmetrical chest rise, I did not appreciate any significant wheezes, rales, rhonchi, no increased work of breathing GI: Normal bowel sounds, soft, nontender in all 4 quadrants, nondistended MSK: No sensory or motor changes, moves all extremities without issue, extre mities are warm and well-perfused Skin: [place], clean, dry, intact. Neuro: Alert and oriented x4, CN II through XII grossly intact, PERRLA, EOMI, sensory function intact, motor function intact, cerebellar function intact Psych: Calm, cooperative, logical thought process Results & Data Results & Data ([facility]) Vital Signs (Past 12 Hours) Vital Signs Temp Pulse Pulse Resp BP Pulse Ox 07/07/20 22:33 36.9 C 78 14 112/63 98 07/07/20 22:19 90 07/07/20 21:57 92 H 07/07/20 21:40 37.3 C 115 H 20 127/71 93 Laboratory Results 07/08/20 07/08/20 07/08/20 Range/Units 09:56 09:56 09:56 WBC 8.77 (4.8-10.8) K/uL RBC 5.10 (4.7-6.1) M/uL Hgb 15.4 (14.0-18.0) g/dL Hct 43.0 (42-52) % MCV 84.3 (80-100) fL MCH 30.2 (25-34) pg MCHC 35.8 (32-36) g/dL RDW Std Deviation 42.5 (36.4-46.3) fL RDW Coeff of Marce 13.6 (11.5-14.5) % Plt Count 275 (130-400) K/uL MPV 9.8 (7.4-10.4) fL Immature Gran % (Auto) 0.2 % Neut % (Auto) 83.2 % Lymph % (Auto) 14.3 % [place] % (Auto) 2.3 % Eos % (Auto) 0.0 % Baso % (Auto) 0.0 % Neut # (Auto) 7.30 H (1.4-6.5) K/uL Lymph # (Auto) 1.25 (1.2-3.4) K/uL [place] # (Auto) 0.20 (0.11-0.59) K/uL Eos # (Auto) 0.00 (0-0.5) K/uL Baso # (Auto) 0.00 (0-0.2) K/uL Immature Gran # (Auto) 0.02 (0.00-0.02) K/uL ESR 7 (0-14) mm/hr PT (9.0-12.0) Seconds INR (0.9-1.1) APTT (21.0-31.0) Seconds PTT Ratio Sodium (136-145) mmol/L Potassium (3.5-5.1) mmol/L Chloride (98-107) mmol/L Carbon Dioxide (21-32) mmol/L Anion Gap (3-11) BUN (7-18) mg/dl Creatinine (0.6-1.4) mg/dl Est Cr Clr Drug Dosing ml/min Est GFR ( Amer) Est GFR (Non-Af Amer) BUN/Creatinine Ratio (10-20) Glucose (70-99) mg/dl Lactate (0.4-2.0) mmol/L Calcium (8.5-10.1) mg/dl Magnesium (1.8-2.4) mg/dl Total Bilirubin (0.2-1) mg/dl AST (15-37) U/L ALT (12-78) U/L Alkaline Phosphatase (45-117) U/L Troponin I (0-0.045) ng/ml Total Protein (6.4-8.2) gm/dl Albumin (3.4-5.0) gm/dl Globulin (2.5-4.0) gm/dl Albumin/Globulin Ratio (0.9-2) TSH Pending Prolactin ng/ml Urine Color Urine Appearance (Clear) Urine pH (4.5-7.5) Ur Specific [place] (1.000-1.030) Urine Protein (Negative) Urine Glucose (UA) (Negative) Urine Ketones (Negative) Urine Blood (Negative) Urine Nitrite (Negative) Urine Bilirubin (Negative) Urine Urobilinogen (Negative) Ur Leukocyte Esterase (Negative) Fluid Comment CSF Appearance CSF Color Xanthrochromic CSF WBC (0-5) /uL CSF RBC (0-) /uL CSF Cell Count Tube # CSF Mononuclear WBCs % % CSF Polynuclear WBCs % % CSF Chemistry Tube # CSF Glucose (40-70) mg/dl CSF Total Protein (15-45) mg/dl CSF Lyme IgG (Immblot) CSF Lyme IgG Bands Det CSF Lyme IgM (Immblot) CSF Lyme IgM Bands Det CSF C.neoform/gat PCR (NotDetected) CSF CMV DNA (PCR) (NotDetected) CSF Enterovirus (PCR) (NotDetected) CSF E. coli K1 (PCR) (NotDetected) CSF H. influenzae (PCR) (NotDetected) CSF HSV I (PCR) (NotDetected) CSF HSV II (PCR) (NotDetected) CSF HHV 6 (PCR) (NotDetected) CSF L.monocytogenes PCR (NotDetected) CSF N. meningitidis PCR (NotDetected) CSF Parechovirus (PCR) (NotDetected) CSF S. agalactiae (PCR) (NotDetected) CSF S. pneumoniae (PCR) (NotDetected) CSF VZV DNA (PCR) (NotDetected) Urine Opiates Screen (Neg) Ur Methadone, Qual (Neg) Urine Barbiturates (Neg) Ur Phencyclidine (PCP) (Neg) U Amphetamin/Meth Scrn (Neg) MDMA (Ecstasy) Screen (Neg) U Benzodiazepines Scrn (Neg) Ur Cocaine Metabolite (Neg) U Marijuana (THC) Screen (Neg) Ethyl Alcohol mg/dL (0-3) mg/dl Lyme Disease IgG Ab Lyme Disease IgM Ab COVID-19 Eval Order SARS-CoV-2 (PCR) (Negative) Influenza Type A (PCR) (Neg) Influenza Type B (PCR) (Neg) RSV (RT-PCR) (Neg) Blood Type Antibody Screen 07/08/20 07/08/20 07/07/20 Range/Units 09:56 09:56 20:18 WBC (4.8-10.8) K/uL RBC (4.7-6.1) M/uL Hgb (14.0-18.0) g/dL Hct (42-52) % MCV (80-100) fL MCH (25-34) pg MCHC (32-36) g/dL RDW Std Deviation (36.4-46.3) fL RDW Coeff of Marce (11.5-14.5) % Plt Count (130-400) K/uL MPV (7.4-10.4) fL Immature Gran % (Auto) % Neut % (Auto) % Lymph % (Auto) % [place] % (Auto) % Eos % (Auto) % Baso % (Auto) % Neut # (Auto) (1.4-6.5) K/uL Lymph # (Auto) (1.2-3.4) K/uL [place] # (Auto) (0.11-0.59) K/uL Eos # (Auto) (0-0.5) K/uL Baso # (Auto) (0-0.2) K/uL Immature Gran # (Auto) (0.00-0.02) K/uL ESR (0-14) mm/hr PT (9.0-12.0) Seconds INR (0.9-1.1) APTT (21.0-31.0) Seconds PTT Ratio Sodium (136-145) mmol/L Potassium (3.5-5.1) mmol/L Chloride (98-107) mmol/L Carbon Dioxide (21-32) mmol/L Anion Gap (3-11) BUN (7-18) mg/dl Creatinine 0.97 (0.6-1.4) mg/dl Est Cr Clr Drug Dosing 127.1 ml/min Est GFR ( Amer) 127.9 Est GFR (Non-Af Amer) 110.4 BUN/Creatinine Ratio (10-20) Glucose (70-99) mg/dl Lactate 3.1 H* (0.4-2.0) mmol/L Calcium (8.5-10.1) mg/dl Magnesium (1.8-2.4) mg/dl Total Bilirubin (0.2-1) mg/dl AST (15-37) U/L ALT (12-78) U/L Alkaline Phosphatase (45-117) U/L Troponin I (0-0.045) ng/ml Total Protein (6.4-8.2) gm/dl Albumin (3.4-5.0) gm/dl Globulin (2.5-4.0) gm/dl Albumin/Globulin Ratio (0.9-2) TSH Prolactin ng/ml Urine Color Urine Appearance (Clear) Urine pH (4.5-7.5) Ur Specific [place] (1.000-1.030) Urine Protein (Negative) Urine Glucose (UA) (Negative) Urine Ketones (Negative) Urine Blood (Negative) Urine Nitrite (Negative) Urine Bilirubin (Negative) Urine Urobilinogen (Negative) Ur Leukocyte Esterase (Negative) Fluid Comment CSF Appearance Bloody CSF Color Red Xanthrochromic Xanthochromic CSF WBC 1404 H* (0-5) /uL CSF RBC 97037 (0-) /uL CSF Cell Count Tube # 3 CSF Mononuclear WBCs % 63.0 % CSF Polynuclear WBCs % 37.0 % CSF Chemistry Tube # CSF Glucose (40-70) mg/dl CSF Total Protein (15-45) mg/dl CSF Lyme IgG (Immblot) CSF Lyme IgG Bands Det CSF Lyme IgM (Immblot) CSF Lyme IgM Bands Det CSF C.neoform/gat PCR (NotDetected) CSF CMV DNA (PCR) (NotDetected) CSF Enterovirus (PCR) (NotDetected) CSF E. coli K1 (PCR) (NotDetected) CSF H. influenzae (PCR) (NotDetected) CSF HSV I (PCR) (NotDetected) CSF HSV II (PCR) (NotDetected) CSF HHV 6 (PCR) (NotDetected) CSF L.monocytogenes PCR (NotDetected) CSF N. meningitidis PCR (NotDetected) CSF Parechovirus (PCR) (NotDetected) CSF S. agalactiae (PCR) (NotDetected) CSF S. pneumoniae (PCR) (NotDetected) CSF VZV DNA (PCR) (NotDetected) Urine Opiates Screen (Neg) Ur Methadone, Qual (Neg) Urine Barbiturates (Neg) Ur Phencyclidine (PCP) (Neg) U Amphetamin/Meth Scrn (Neg) MDMA (Ecstasy) Screen (Neg) U Benzodiazepines Scrn (Neg) Ur Cocaine Metabolite (Neg) U Marijuana (THC) Screen (Neg) Ethyl Alcohol mg/dL (0-3) mg/dl Lyme Disease IgG Ab Lyme Disease IgM Ab COVID-19 Eval Order SARS-CoV-2 (PCR) (Negative) Influenza Type A (PCR) (Neg) Influenza Type B (PCR) (Neg) RSV (RT-PCR) (Neg) Blood Type Antibody Screen 07/07/20 07/07/20 07/07/20 Range/Units 20:18 20:18 20:18 WBC (4.8-10.8) K/uL RBC (4.7-6.1) M/uL Hgb (14.0-18.0) g/dL Hct (42-52) % MCV (80-100) fL MCH (25-34) pg MCHC (32-36) g/dL RDW Std Deviation (36.4-46.3) fL RDW Coeff of Marce (11.5-14.5) % Plt Count (130-400) K/uL MPV (7.4-10.4) fL Immature Gran % (Auto) % Neut % (Auto) % Lymph % (Auto) % [place] % (Auto) % Eos % (Auto) % Baso % (Auto) % Neut # (Auto) (1.4-6.5) K/uL Lymph # (Auto) (1.2-3.4) K/uL [place] # (Auto) (0.11-0.59) K/uL Eos # (Auto) (0-0.5) K/uL Baso # (Auto) (0-0.2) K/uL Immature Gran # (Auto) (0.00-0.02) K/uL ESR (0-14) mm/hr PT (9.0-12.0) Seconds INR (0.9-1.1) APTT (21.0-31.0) Seconds PTT Ratio Sodium (136-145) mmol/L Potassium (3.5-5.1) mmol/L Chloride (98-107) mmol/L Carbon Dioxide (21-32) mmol/L Anion Gap (3-11) BUN (7-18) mg/dl Creatinine (0.6-1.4) mg/dl Est Cr Clr Drug Dosing ml/min Est GFR ( Amer) Est GFR (Non-Af Amer) BUN/Creatinine Ratio (10-20) Glucose (70-99) mg/dl Lactate (0.4-2.0) mmol/L Calcium (8.5-10.1) mg/dl Magnesium (1.8-2.4) mg/dl Total Bilirubin (0.2-1) mg/dl AST (15-37) U/L ALT (12-78) U/L Alkaline Phosphatase (45-117) U/L Troponin I (0-0.045) ng/ml Total Protein (6.4-8.2) gm/dl Albumin (3.4-5.0) gm/dl Globulin (2.5-4.0) gm/dl Albumin/Globulin Ratio (0.9-2) TSH Prolactin ng/ml Urine Color Urine Appearance (Clear) Urine pH (4.5-7.5) Ur Specific [place] (1.000-1.030) Urine Protein (Negative) Urine Glucose (UA) (Negative) Urine Ketones (Negative) Urine Blood (Negative) Urine Nitrite (Negative) Urine Bilirubin (Negative) Urine Urobilinogen (Negative) Ur Leukocyte Esterase (Negative) Fluid Comment CSF Appearance CSF Color Xanthrochromic CSF WBC (0-5) /uL CSF RBC (0-) /uL CSF Cell Count Tube # CSF Mononuclear WBCs % % CSF Polynuclear WBCs % % CSF Chemistry Tube # 1 CSF Glucose 67 (40-70) mg/dl CSF Total Protein 610.4 H (15-45) mg/dl CSF Lyme IgG (Immblot) Pending CSF Lyme IgG Bands Det Pending CSF Lyme IgM (Immblot) Pending CSF Lyme IgM Bands Det Pending CSF C.neoform/gat PCR Not Detected (NotDetected) CSF CMV DNA (PCR) Not Detected (NotDetected) CSF Enterovirus (PCR) Not Detected (NotDetected) CSF E. coli K1 (PCR) Not Detected (NotDetected) CSF H. influenzae (PCR) Not Detected (NotDetected) CSF HSV I (PCR) Not Detected (NotDetected) CSF HSV II (PCR) Not Detected (NotDetected) CSF HHV 6 (PCR) Not Detected (NotDetected) CSF L.monocytogenes PCR Not Detected (NotDetected) CSF N. meningitidis PCR Not Detected (NotDetected) CSF Parechovirus (PCR) Not Detected (NotDetected) CSF S. agalactiae (PCR) Not Detected (NotDetected) CSF S. pneumoniae (PCR) Not Detected (NotDetected) CSF VZV DNA (PCR) Not Detected (NotDetected) Urine Opiates Screen (Neg) Ur Methadone, Qual (Neg) Urine Barbiturates (Neg) Ur Phencyclidine (PCP) (Neg) U Amphetamin/Meth Scrn (Neg) MDMA (Ecstasy) Screen (Neg) U Benzodiazepines Scrn (Neg) Ur Cocaine Metabolite (Neg) U Marijuana (THC) Screen (Neg) Ethyl Alcohol mg/dL (0-3) mg/dl Lyme Disease IgG Ab Lyme Disease IgM Ab COVID-19 Eval Order SARS-CoV-2 (PCR) (Negative) Influenza Type A (PCR) (Neg) Influenza Type B (PCR) (Neg) RSV (RT-PCR) (Neg) Blood Type Antibody Screen 07/07/20 07/07/20 07/07/20 Range/Units 18:16 18:15 16:18 WBC (4.8-10.8) K/uL RBC (4.7-6.1) M/uL Hgb (14.0-18.0) g/dL Hct (42-52) % MCV (80-100) fL MCH (25-34) pg MCHC (32-36) g/dL RDW Std Deviation (36.4-46.3) fL RDW Coeff of Marce (11.5-14.5) % Plt Count (130-400) K/uL MPV (7.4-10.4) fL Immature Gran % (Auto) % Neut % (Auto) % Lymph % (Auto) % [place] % (Auto) % Eos % (Auto) % Baso % (Auto) % Neut # (Auto) (1.4-6.5) K/uL Lymph # (Auto) (1.2-3.4) K/uL [place] # (Auto) (0.11-0.59) K/uL Eos # (Auto) (0-0.5) K/uL Baso # (Auto) (0-0.2) K/uL Immature Gran # (Auto) (0.00-0.02) K/uL ESR (0-14) mm/hr PT (9.0-12.0) Seconds INR (0.9-1.1) APTT (21.0-31.0) Seconds PTT Ratio Sodium (136-145) mmol/L Potassium (3.5-5.1) mmol/L Chloride (98-107) mmol/L Carbon Dioxide (21-32) mmol/L Anion Gap (3-11) BUN (7-18) mg/dl Creatinine (0.6-1.4) mg/dl Est Cr Clr Drug Dosing ml/min Est GFR ( Amer) Est GFR (Non-Af Amer) BUN/Creatinine Ratio (10-20) Glucose 114 H (70-99) mg/dl Lactate 3.1 H* (0.4-2.0) mmol/L Calcium (8.5-10.1) mg/dl Magnesium (1.8-2.4) mg/dl Total Bilirubin (0.2-1) mg/dl AST (15-37) U/L ALT (12-78) U/L Alkaline Phosphatase (45-117) U/L Troponin I (0-0.045) ng/ml Total Protein (6.4-8.2) gm/dl Albumin (3.4-5.0) gm/dl Globulin (2.5-4.0) gm/dl Albumin/Globulin Ratio (0.9-2) TSH Prolactin ng/ml Urine Color Urine Appearance (Clear) Urine pH (4.5-7.5) Ur Specific [place] (1.000-1.030) Urine Protein (Negative) Urine Glucose (UA) (Negative) Urine Ketones (Negative) Urine Blood (Negative) Urine Nitrite (Negative) Urine Bilirubin (Negative) Urine Urobilinogen (Negative) Ur Leukocyte Esterase (Negative) Fluid Comment CSF Appearance CSF Color Xanthrochromic CSF WBC (0-5) /uL CSF RBC (0-) /uL CSF Cell Count Tube # CSF Mononuclear WBCs % % CSF Polynuclear WBCs % % CSF Chemistry Tube # CSF Glucose (40-70) mg/dl CSF Total Protein (15-45) mg/dl CSF Lyme IgG (Immblot) CSF Lyme IgG Bands Det CSF Lyme IgM (Immblot) CSF Lyme IgM Bands Det CSF C.neoform/gat PCR (NotDetected) CSF CMV DNA (PCR) (NotDetected) CSF Enterovirus (PCR) (NotDetected) CSF E. coli K1 (PCR) (NotDetected) CSF H. influenzae (PCR) (NotDetected) CSF HSV I (PCR) (NotDetected) CSF HSV II (PCR) (NotDetected) CSF HHV 6 (PCR) (NotDetected) CSF L.monocytogenes PCR (NotDetected) CSF N. meningitidis PCR (NotDetected) CSF Parechovirus (PCR) (NotDetected) CSF S. agalactiae (PCR) (NotDetected) CSF S. pneumoniae (PCR) (NotDetected) CSF VZV DNA (PCR) (NotDetected) Urine Opiates Screen (Neg) Ur Methadone, Qual (Neg) Urine Barbiturates (Neg) Ur Phencyclidine (PCP) (Neg) U Amphetamin/Meth Scrn (Neg) MDMA (Ecstasy) Screen (Neg) U Benzodiazepines Scrn (Neg) Ur Cocaine Metabolite (Neg) U Marijuana (THC) Screen (Neg) Ethyl Alcohol mg/dL (0-3) mg/dl Lyme Disease IgG Ab Pending Lyme Disease IgM Ab Pending COVID-19 Eval Order SARS-CoV-2 (PCR) (Negative) Influenza Type A (PCR) (Neg) Influenza Type B (PCR) (Neg) RSV (RT-PCR) (Neg) Blood Type Antibody Screen 07/07/20 07/07/20 07/07/20 Range/Units 16:18 16:18 16:13 WBC (4.8-10.8) K/uL RBC (4.7-6.1) M/uL Hgb (14.0-18.0) g/dL Hct (42-52) % MCV (80-100) fL MCH (25-34) pg MCHC (32-36) g/dL RDW Std Deviation (36.4-46.3) fL RDW Coeff of Marce (11.5-14.5) % Plt Count (130-400) K/uL MPV (7.4-10.4) fL Immature Gran % (Auto) % Neut % (Auto) % Lymph % (Auto) % [place] % (Auto) % Eos % (Auto) % Baso % (Auto) % Neut # (Auto) (1.4-6.5) K/uL Lymph # (Auto) (1.2-3.4) K/uL [place] # (Auto) (0.11-0.59) K/uL Eos # (Auto) (0-0.5) K/uL Baso # (Auto) (0-0.2) K/uL Immature Gran # (Auto) (0.00-0.02) K/uL ESR (0-14) mm/hr PT (9.0-12.0) Seconds INR (0.9-1.1) APTT (21.0-31.0) Seconds PTT Ratio Sodium (136-145) mmol/L Potassium (3.5-5.1) mmol/L Chloride (98-107) mmol/L Carbon Dioxide (21-32) mmol/L Anion Gap (3-11) BUN (7-18) mg/dl Creatinine (0.6-1.4) mg/dl Est Cr Clr Drug Dosing ml/min Est GFR ( Amer) Est GFR (Non-Af Amer) BUN/Creatinine Ratio (10-20) Glucose (70-99) mg/dl Lactate 2.4 H* (0.4-2.0) mmol/L Calcium (8.5-10.1) mg/dl Magnesium (1.8-2.4) mg/dl Total Bilirubin (0.2-1) mg/dl AST (15-37) U/L ALT (12-78) U/L Alkaline Phosphatase (45-117) U/L Troponin I (0-0.045) ng/ml Total Protein (6.4-8.2) gm/dl Albumin (3.4-5.0) gm/dl Globulin (2.5-4.0) gm/dl Albumin/Globulin Ratio (0.9-2) TSH Prolactin 12.53 ng/ml Urine Color Urine Appearance (Clear) Urine pH (4.5-7.5) Ur Specific [place] (1.000-1.030) Urine Protein (Negative) Urine Glucose (UA) (Negative) Urine Ketones (Negative) Urine Blood (Negative) Urine Nitrite (Negative) Urine Bilirubin (Negative) Urine Urobilinogen (Negative) Ur Leukocyte Esterase (Negative) Fluid Comment CSF Appearance CSF Color Xanthrochromic CSF WBC (0-5) /uL CSF RBC (0-) /uL CSF Cell Count Tube # CSF Mononuclear WBCs % % CSF Polynuclear WBCs % % CSF Chemistry Tube # CSF Glucose (40-70) mg/dl CSF Total Protein (15-45) mg/dl CSF Lyme IgG (Immblot) CSF Lyme IgG Bands Det CSF Lyme IgM (Immblot) CSF Lyme IgM Bands Det CSF C.neoform/gat PCR (NotDetected) CSF CMV DNA (PCR) (NotDetected) CSF Enterovirus (PCR) (NotDetected) CSF E. coli K1 (PCR) (NotDetected) CSF H. influenzae (PCR) (NotDetected) CSF HSV I (PCR) (NotDetected) CSF HSV II (PCR) (NotDetected) CSF HHV 6 (PCR) (NotDetected) CSF L.monocytogenes PCR (NotDetected) CSF N. meningitidis PCR (NotDetected) CSF Parechovirus (PCR) (NotDetected) CSF S. agalactiae (PCR) (NotDetected) CSF S. pneumoniae (PCR) (NotDetected) CSF VZV DNA (PCR) (NotDetected) Urine Opiates Screen Neg (Neg) Ur Methadone, Qual Neg (Neg) Urine Barbiturates Neg (Neg) Ur Phencyclidine (PCP) Neg (Neg) U Amphetamin/Meth Scrn Neg (Neg) MDMA (Ecstasy) Screen Neg (Neg) U Benzodiazepines Scrn Neg (Neg) Ur Cocaine Metabolite Neg (Neg) U Marijuana (THC) Screen Neg (Neg) Ethyl Alcohol mg/dL (0-3) mg/dl Lyme Disease IgG Ab Lyme Disease IgM Ab COVID-19 Eval Order SARS-CoV-2 (PCR) (Negative) Influenza Type A (PCR) (Neg) Influenza Type B (PCR) (Neg) RSV (RT-PCR) (Neg) Blood Type Antibody Screen 07/07/20 07/07/20 07/07/20 Range/Units 16:13 15:45 15:45 WBC (4.8-10.8) K/uL RBC (4.7-6.1) M/uL Hgb (14.0-18.0) g/dL Hct (42-52) % MCV (80-100) fL MCH (25-34) pg MCHC (32-36) g/dL RDW Std Deviation (36.4-46.3) fL RDW Coeff of Marce (11.5-14.5) % Plt Count (130-400) K/uL MPV (7.4-10.4) fL Immature Gran % (Auto) % Neut % (Auto) % Lymph % (Auto) % [place] % (Auto) % Eos % (Auto) % Baso % (Auto) % Neut # (Auto) (1.4-6.5) K/uL Lymph # (Auto) (1.2-3.4) K/uL [place] # (Auto) (0.11-0.59) K/uL Eos # (Auto) (0-0.5) K/uL Baso # (Auto) (0-0.2) K/uL Immature Gran # (Auto) (0.00-0.02) K/uL ESR (0-14) mm/hr PT (9.0-12.0) Seconds INR (0.9-1.1) APTT (21.0-31.0) Seconds PTT Ratio Sodium (136-145) mmol/L Potassium (3.5-5.1) mmol/L Chloride (98-107) mmol/L Carbon Dioxide (21-32) mmol/L Anion Gap (3-11) BUN (7-18) mg/dl Creatinine (0.6-1.4) mg/dl Est Cr Clr Drug Dosing ml/min Est GFR ( Amer) Est GFR (Non-Af Amer) BUN/Creatinine Ratio (10-20) Glucose (70-99) mg/dl Lactate (0.4-2.0) mmol/L Calcium (8.5-10.1) mg/dl Magnesium (1.8-2.4) mg/dl Total Bilirubin (0.2-1) mg/dl AST (15-37) U/L ALT (12-78) U/L Alkaline Phosphatase (45-117) U/L Troponin I (0-0.045) ng/ml Total Protein (6.4-8.2) gm/dl Albumin (3.4-5.0) gm/dl Globulin (2.5-4.0) gm/dl Albumin/Globulin Ratio (0.9-2) TSH Prolactin ng/ml Urine Color Yellow Urine Appearance Clear (Clear) Urine pH 7.5 (4.5-7.5) Ur Specific [place] 1.041 H (1.000-1.030) Urine Protein Negative (Negative) Urine Glucose (UA) Negative (Negative) Urine Ketones Negative (Negative) Urine Blood Negative (Negative) Urine Nitrite Negative (Negative) Urine Bilirubin Negative (Negative) Urine Urobilinogen Negative (Negative) Ur Leukocyte Esterase Negative (Negative) Fluid Comment CSF Appearance CSF Color Xanthrochromic CSF WBC (0-5) /uL CSF RBC (0-) /uL CSF Cell Count Tube # CSF Mononuclear WBCs % % CSF Polynuclear WBCs % % CSF Chemistry Tube # CSF Glucose (40-70) mg/dl CSF Total Protein (15-45) mg/dl CSF Lyme IgG (Immblot) CSF Lyme IgG Bands Det CSF Lyme IgM (Immblot) CSF Lyme IgM Bands Det CSF C.neoform/gat PCR (NotDetected) CSF CMV DNA (PCR) (NotDetected) CSF Enterovirus (PCR) (NotDetected) CSF E. coli K1 (PCR) (NotDetected) CSF H. influenzae (PCR) (NotDetected) CSF HSV I (PCR) (NotDetected) CSF HSV II (PCR) (NotDetected) CSF HHV 6 (PCR) (NotDetected) CSF L.monocytogenes PCR (NotDetected) CSF N. meningitidis PCR (NotDetected) CSF Parechovirus (PCR) (NotDetected) CSF S. agalactiae (PCR) (NotDetected) CSF S. pneumoniae (PCR) (NotDetected) CSF VZV DNA (PCR) (NotDetected) Urine Opiates Screen (Neg) Ur Methadone, Qual (Neg) Urine Barbiturates (Neg) Ur Phencyclidine (PCP) (Neg) U Amphetamin/Meth Scrn (Neg) MDMA (Ecstasy) Screen (Neg) U Benzodiazepines Scrn (Neg) Ur Cocaine Metabolite (Neg) U Marijuana (THC) Screen (Neg) Ethyl Alcohol mg/dL (0-3) mg/dl Lyme Disease IgG Ab Lyme Disease IgM Ab COVID-19 Eval Order CovFluRsv at [facility] SARS-CoV-2 (PCR) NEGATIVE (Negative) Influenza Type A (PCR) Negative (Neg) Influenza Type B (PCR) Negative (Neg) RSV (RT-PCR) Negative (Neg) Blood Type Antibody Screen 07/07/20 07/07/20 07/07/20 Range/Units 15:07 15:06 15:06 WBC (4.8-10.8) K/uL RBC (4.7-6.1) M/uL Hgb (14.0-18.0) g/dL Hct (42-52) % MCV (80-100) fL MCH (25-34) pg MCHC (32-36) g/dL RDW Std Deviation (36.4-46.3) fL RDW Coeff of Marce (11.5-14.5) % Plt Count (130-400) K/uL MPV (7.4-10.4) fL Immature Gran % (Auto) % Neut % (Auto) % Lymph % (Auto) % [place] % (Auto) % Eos % (Auto) % Baso % (Auto) % Neut # (Auto) (1.4-6.5) K/uL Lymph # (Auto) (1.2-3.4) K/uL [place] # (Auto) (0.11-0.59) K/uL Eos # (Auto) (0-0.5) K/uL Baso # (Auto) (0-0.2) K/uL Immature Gran # (Auto) (0.00-0.02) K/uL ESR (0-14) mm/hr PT 10.6 (9.0-12.0) Seconds INR 1.0 (0.9-1.1) APTT 24.7 (21.0-31.0) Seconds PTT Ratio 0.9 Sodium 135 L (136-145) mmol/L Potassium 3.8 (3.5-5.1) mmol/L Chloride 103 (98-107) mmol/L Carbon Dioxide 24 (21-32) mmol/L Anion Gap 8.0 (3-11) BUN 14 (7-18) mg/dl Creatinine 0.91 (0.6-1.4) mg/dl Est Cr Clr Drug Dosing 135.6 ml/min Est GFR ( Amer) 138.2 Est GFR (Non-Af Amer) 119.2 BUN/Creatinine Ratio 15.3 (10-20) Glucose 139 H (70-99) mg/dl Lactate (0.4-2.0) mmol/L Calcium 10.2 H (8.5-10.1) mg/dl Magnesium 2.0 (1.8-2.4) mg/dl Total Bilirubin 0.3 (0.2-1) mg/dl AST 19 (15-37) U/L ALT 33 (12-78) U/L Alkaline Phosphatase 68 (45-117) U/L Troponin I < 0.015 (0-0.045) ng/ml Total Protein 8.8 H (6.4-8.2) gm/dl Albumin 4.7 (3.4-5.0) gm/dl Globulin 4.1 H (2.5-4.0) gm/dl Albumin/Globulin Ratio 1.2 (0.9-2) TSH Prolactin ng/ml Urine Color Urine Appearance (Clear) Urine pH (4.5-7.5) Ur Specific [place] (1.000-1.030) Urine Protein (Negative) Urine Glucose (UA) (Negative) Urine Ketones (Negative) Urine Blood (Negative) Urine Nitrite (Negative) Urine Bilirubin (Negative) Urine Urobilinogen (Negative) Ur Leukocyte Esterase (Negative) Fluid Comment CSF Appearance CSF Color Xanthrochromic CSF WBC (0-5) /uL CSF RBC (0-) /uL CSF Cell Count Tube # CSF Mononuclear WBCs % % CSF Polynuclear WBCs % % CSF Chemistry Tube # CSF Glucose (40-70) mg/dl CSF Total Protein (15-45) mg/dl CSF Lyme IgG (Immblot) CSF Lyme IgG Bands Det CSF Lyme IgM (Immblot) CSF Lyme IgM Bands Det CSF C.neoform/gat PCR (NotDetected) CSF CMV DNA (PCR) (NotDetected) CSF Enterovirus (PCR) (NotDetected) CSF E. coli K1 (PCR) (NotDetected) CSF H. influenzae (PCR) (NotDetected) CSF HSV I (PCR) (NotDetected) CSF HSV II (PCR) (NotDetected) CSF HHV 6 (PCR) (NotDetected) CSF L.monocytogenes PCR (NotDetected) CSF N. meningitidis PCR (NotDetected) CSF Parechovirus (PCR) (NotDetected) CSF S. agalactiae (PCR) (NotDetected) CSF S. pneumoniae (PCR) (NotDetected) CSF VZV DNA (PCR) (NotDetected) Urine Opiates Screen (Neg) Ur Methadone, Qual (Neg) Urine Barbiturates (Neg) Ur Phencyclidine (PCP) (Neg) U Amphetamin/Meth Scrn (Neg) MDMA (Ecstasy) Screen (Neg) U Benzodiazepines Scrn (Neg) Ur Cocaine Metabolite (Neg) U Marijuana (THC) Screen (Neg) Ethyl Alcohol mg/dL < 3.0 (0-3) mg/dl Lyme Disease IgG Ab Lyme Disease IgM Ab COVID-19 Eval Order SARS-CoV-2 (PCR) (Negative) Influenza Type A (PCR) (Neg) Influenza Type B (PCR) (Neg) RSV (RT-PCR) (Neg) Blood Type Antibody Screen 07/07/20 07/07/20 Range/Units 15:06 15:06 WBC 11.23 H (4.8-10.8) K/uL RBC 5.32 (4.7-6.1) M/uL Hgb 15.6 (14.0-18.0) g/dL Hct 45.7 (42-52) % MCV 85.9 (80-100) fL MCH 29.3 (25-34) pg MCHC 34.1 (32-36) g/dL RDW Std Deviation 42.9 (36.4-46.3) fL RDW Coeff of Marce 13.7 (11.5-14.5) % Plt Count 267 (130-400) K/uL MPV 9.9 (7.4-10.4) fL Immature Gran % (Auto) 0.3 % Neut % (Auto) 49.9 % Lymph % (Auto) 43.4 % [place] % (Auto) 5.4 % Eos % (Auto) 0.6 % Baso % (Auto) 0.4 % Neut # (Auto) 5.61 (1.4-6.5) K/uL Lymph # (Auto) 4.87 H (1.2-3.4) K/uL [place] # (Auto) 0.61 H (0.11-0.59) K/uL Eos # (Auto) 0.07 (0-0.5) K/uL Baso # (Auto) 0.04 (0-0.2) K/uL Immature Gran # (Auto) 0.03 H (0.00-0.02) K/uL ESR (0-14) mm/hr PT (9.0-12.0) Seconds INR (0.9-1.1) APTT (21.0-31.0) Seconds PTT Ratio Sodium (136-145) mmol/L Potassium (3.5-5.1) mmol/L Chloride (98-107) mmol/L Carbon Dioxide (21-32) mmol/L Anion Gap (3-11) BUN (7-18) mg/dl Creatinine (0.6-1.4) mg/dl Est Cr Clr Drug Dosing ml/min Est GFR ( Amer) Est GFR (Non-Af Amer) BUN/Creatinine Ratio (10-20) Glucose (70-99) mg/dl Lactate (0.4-2.0) mmol/L Calcium (8.5-10.1) mg/dl Magnesium (1.8-2.4) mg/dl Total Bilirubin (0.2-1) mg/dl AST (15-37) U/L ALT (12-78) U/L Alkaline Phosphatase (45-117) U/L Troponin I (0-0.045) ng/ml Total Protein (6.4-8.2) gm/dl Albumin (3.4-5.0) gm/dl Globulin (2.5-4.0) gm/dl Albumin/Globulin Ratio (0.9-2) TSH Prolactin ng/ml Urine Color Urine Appearance (Clear) Urine pH (4.5-7.5) Ur Specific [place] (1.000-1.030) Urine Protein (Negative) Urine Glucose (UA) (Negative) Urine Ketones (Negative) Urine Blood (Negative) Urine Nitrite (Negative) Urine Bilirubin (Negative) Urine Urobilinogen (Negative) Ur Leukocyte Esterase (Negative) Fluid Comment CSF Appearance CSF Color Xanthrochromic CSF WBC (0-5) /uL CSF RBC (0-) /uL CSF Cell Count Tube # CSF Mononuclear WBCs % % CSF Polynuclear WBCs % % CSF Chemistry Tube # CSF Glucose (40-70) mg/dl CSF Total Protein (15-45) mg/dl CSF Lyme IgG (Immblot) CSF Lyme IgG Bands Det CSF Lyme IgM (Immblot) CSF Lyme IgM Bands Det CSF C.neoform/gat PCR (NotDetected) CSF CMV DNA (PCR) (NotDetected) CSF Enterovirus (PCR) (NotDetected) CSF E. coli K1 (PCR) (NotDetected) CSF H. influenzae (PCR) (NotDetected) CSF HSV I (PCR) (NotDetected) CSF HSV II (PCR) (NotDetected) CSF HHV 6 (PCR) (NotDetected) CSF L.monocytogenes PCR (NotDetected) CSF N. meningitidis PCR (NotDetected) CSF Parechovirus (PCR) (NotDetected) CSF S. agalactiae (PCR) (NotDetected) CSF S. pneumoniae (PCR) (NotDetected) CSF VZV DNA (PCR) (NotDetected) Urine Opiates Screen (Neg) Ur Methadone, Qual (Neg) Urine Barbiturates (Neg) Ur Phencyclidine (PCP) (Neg) U Amphetamin/Meth Scrn (Neg) MDMA (Ecstasy) Screen (Neg) U Benzodiazepines Scrn (Neg) Ur Cocaine Metabolite (Neg) U Marijuana (THC) Screen (Neg) Ethyl Alcohol mg/dL (0-3) mg/dl Lyme Disease IgG Ab Lyme Disease IgM Ab COVID-19 Eval Order SARS-CoV-2 (PCR) (Negative) Influenza Type A (PCR) (Neg) Influenza Type B (PCR) (Neg) RSV (RT-PCR) (Neg) Blood Type B Positive Antibody Screen NEGATIVE Medications Administered Current Inpatient Medications Acetaminophen (Acetaminophen 325 Mg Tab) 650 mg PO Q4H PRN PRN Reason: Pain or Fever Stop: 08/06/20 22:29 Dexamethasone 4 mg/ Syringe 1 mls @ 1 mls/min IV Q6H GEOVANNI Stop: 08/06/20 05:59 Last Admin: 07/08/20 06:04 Dose: 1 mls/min Documented by: Ceftriaxone Sodium 2,000 mg/ (Dextrose) 70 mls @ 100 mls/hr IV Q12H GEOVANNI; Protocol Stop: 07/17/20 09:59 Last Infusion: 07/08/20 10:41 Dose: Infused Documented by: Potassium Chloride/Dextrose/Sod Cl (D5nss + 20meq Kcl) 20 meq in 1,000 mls @ 100 mls/hr IV .Q10H COUNTS INCLUDE 234 BEDS AT THE [facility] Stop: 07/08/20 22:59 Last Admin: 07/08/20 09:00 Dose: 100 mls/hr Documented by: Vancomycin HCl 1,500 mg/ (Sodium Chloride) 530 mls @ 200 mls/hr IV Q8H COUNTS INCLUDE 234 BEDS AT THE [facility] Stop: 07/18/20 09:59 Last Admin: 07/08/20 09:53 Dose: 200 mls/hr Documented by: Acyclovir Sodium 750 mg/ (Dextrose) 265 mls @ 250 mls/hr IV Q8H COUNTS INCLUDE 234 BEDS AT THE [facility] Stop: 07/18/20 05:59 Last Infusion: 07/08/20 07:39 Dose: Infused Documented by: Ketorolac Tromethamine (Ketorolac Tromethamine 15 Mg/Ml Vial) 15 mg IV Q6H PRN PRN Reason: Pain Stop: 07/12/20 22:29 Miscellaneous Information (Vancomycin Consult Active) 1 ea N/A UD PRN PRN Reason: Consult Stop: 08/06/20 19:12 Ondansetron HCl (Ondansetron Inj 2 Mg/Ml 2 Ml Vial) 4 mg IV Q6H PRN PRN Reason: Nausea Stop: 08/06/20 22:29 Resident Activity Tracking Resident Involvement: Resident Care Provided Care Provided: Adult Hospital Medicine (1) Headache Headache chronicity pattern: unspecified pattern Headache type: unspecified Intractability: not intractable Qualified Code(s): R51.9 - Headache, unspecified
--- NOTE | 2020-07-08 08:46 | Electroencephalogram ---
EEG Procedure Note Date of Service July 08, 2020 Start / End Times Start Time: 07:42 End Time: 08:[address] Reymundo Maldonado History A 20 year old male with possible seizure. EEG performed for evaluation of epileptiform activity. Home Medication List Medication Instructions Recorded Confirmed Type multivitamin 1 tab PO QAM 06/29/20 07/07/20 History Inpatient Medication List Dexamethasone 4 mg/ Syringe 1 mls @ 1 mls/min IV Q6H GEOVANNI Stop: 08/06/20 05:59 Last Admin: 07/08/20 06:04 Dose: 1 mls/min Documented by: [id number] Potassium Chloride/Dextrose/Sod Cl (D5nss + 20meq Kcl) 20 meq in 1,000 mls @ 100 mls/hr IV .Q10H GEOVANNI Stop: 07/08/20 22:59 Last Admin: 07/07/20 22:57 Dose: 100 mls/hr Documented by: [id number] Acyclovir Sodium 750 mg/ (Dextrose) 265 mls @ 250 mls/hr IV Q8H GEOVANNI Stop: 07/18/20 05:59 Last Infusion: 07/08/20 07:39 Dose: 0 mls/hr Documented by: [id number] Admin: 07/08/20 06:05 Dose: 250 mls/hr Documented by: [id number] Discontinued Medications Diphenhydramine HCl (Diphenhydramine 50 Mg/Ml Vial) 25 mg IV NOW STA Stop: 07/07/20 16:29 Last Admin: 07/07/20 16:39 Dose: 25 mg Documented by: [id number] Gadobutrol (Gadobutrol 65ml Vial) 7.5 ml IV ONCE ONE Stop: 07/07/20 20:51 Last Admin: 07/07/20 20:51 Dose: 7.5 ml Documented by: [id number] Sodium Chloride (Nss 1000ml) 1,000 mls @ 999 mls/hr IV .Q1H1M ONE Stop: 07/07/20 15:49 Last Infusion: 07/07/20 16:11 Dose: 0 mls/hr Documented by: [id number] Admin: 07/07/20 15:06 Dose: 999 mls/hr Documented by: [id number] Lorazepam (Ativan) 0.5 mg in 1 mls @ 1 mls/min IV NOW STA Stop: 07/07/20 14:50 Last Admin: 07/07/20 15:05 Dose: 1 mls/min Documented by: [id number] Sodium Chloride (Nss 1000ml) 1,000 mls @ 125 mls/hr IV .Q8H GEOVANNI Stop: 08/06/20 17:44 Last Infusion: 07/07/20 23:02 Dose: 0 mls/hr Documented by: [id number] Admin: 07/07/20 22:38 Dose: 125 mls/hr Documented by: [id number] Infusion: 07/07/20 21:40 Dose: 125 mls/hr Documented by: [id number] Admin: 07/07/20 18:50 Dose: 125 mls/hr Documented by: [id number] Ceftriaxone Sodium (Rocephin) 2,000 mg in 70 mls @ 140 mls/hr IV NOW STA Stop: 07/07/20 19:42 Last Infusion: 07/07/20 23:24 Dose: 0 mls/hr Documented by: [id number] Admin: 07/07/20 22:35 Dose: 140 mls/hr Documented by: [id number] Vancomycin HCl 2,000 mg/ (Sodium Chloride) 540 mls @ 200 mls/hr IV NOW ONE Stop: 07/07/20 21:54 Last Infusion: 07/08/20 01:26 Dose: 0 mls/hr Documented by: [id number] Admin: 07/07/20 22:39 Dose: 200 mls/hr Documented by: [id number] Acyclovir Sodium 750 mg/ (Dextrose) 115 mls @ 100 mls/hr IV NOW ONE Stop: 07/07/20 20:21 Last Infusion: 07/08/20 00:12 Dose: 0 mls/hr Documented by: [id number] Admin: 07/07/20 22:39 Dose: 100 mls/hr Documented by: [id number] Thiamine HCl 100 mg/ Syringe 10 mls @ 2 mls/min IV ONE ONE Stop: 07/07/20 22:49 Last Admin: 07/07/20 22:57 Dose: 2 mls/min Documented by: [id number] Dexamethasone 4 mg/ Syringe 1 mls @ 1 mls/min IV ONE ONE Stop: 07/07/20 23:01 Last Admin: 07/08/20 00:22 Dose: 1 mls/min Documented by: [id number] Ioversol (Optiray 320 125ml) 117 ml IV ONCE ONE Stop: 07/07/20 15:27 Last Admin: 07/07/20 15:26 Dose: 117 ml Documented by: [id number] Ketorolac Tromethamine (Ketorolac Tromethamine 15 Mg/Ml Vial) 15 mg IV NOW STA Stop: 07/07/20 16:29 Last Admin: 07/07/20 16:39 Dose: 15 mg Documented by: [id number] Lidocaine HCl (Lidocaine Hcl 1% 20 Ml Vial) Confirm Administered Dose 20 ml .ROUTE .STK-MED ONE Stop: 07/07/20 18:29 Last Admin: 07/07/20 19:16 Dose: Not Given Documented by: [id number] Lidocaine HCl (Lidocaine Hcl 1% 20 Ml Vial) Confirm Administered Dose 20 ml .ROUTE .STK-MED ONE Stop: 07/07/20 18:45 Last Admin: 07/07/20 19:16 Dose: Not Given Documented by: [id number] Lorazepam (Lorazepam 2 Mg/4 Ml Vial) Confirm Administered Dose 2 mg .ROUTE .[employer] ONE Stop: 07/07/20 18:29 Last Increment: 07/07/20 18:50 Dose: 1 mg Documented by: [id number] Metoclopramide HCl (Metoclopramide Hcl Inj 5 Mg/Ml 2 Ml Vial) 5 mg IV ONE ONE Stop: 07/07/20 16:29 Last Admin: 07/07/20 16:39 Dose: 5 mg Documented by: [id number] Morphine Sulfate (Morphine Sulfate 4 Mg/Ml 1 Ml Carp\Vial) Confirm Administered Dose 4 mg .ROUTE [facility] ONE Stop: 07/07/20 18:29 Last Admin: 07/07/20 19:15 Dose: 4 mg Documented by: [id number] Ondansetron HCl (Ondansetron Inj 2 Mg/Ml 2 Ml Vial) Confirm Administered Dose 4 mg .ROUTE [facility] ONE Stop: 07/07/20 18:42 Last Admin: 07/07/20 19:16 Dose: 4 mg Documented by: [id number] Sodium Chloride (Sodium Chloride 0.65% Na Soln 45 Ml ([place])) Confirm Administered Dose 225 sprays .ROUTE [facility] ONE Stop: 07/07/20 22:04 Last Admin: 07/07/20 23:24 Dose: Not Given Documented by: [id number] Description This is a 21 electrode EEG with a single channel dedicated to limited EKG. The electrodes were placed in accordance with the International 10-20 system. REPORT: At the onset of the EEG the patient is awake. The background is symmetric and well organized. There is a normal anterior to posterior gradienet. The posterior dominant rhythm is 9-10 Hz. There is electrode artifact noted in the left temporal head region. Drowsiness is characterized by increased theta, reduced myogenic artifact, and decreased blink rate. No stage II sleep transients are seen. Photic stimulation does not induce any abnormalities. IMPRESSION: This is a normal awake and drowsy routine EEG. No epileptiform discharges are seen. Recommend repeat EEG as outpatient as electrode pop artifact is noted in the left temporal head region.
[2020-07-08] MEDS: D5NSS + 20MEQ KCL 20 MEQ/1,000 ML BAG IV SCH (09:00)
[2020-07-08] MEDS: VANCOMYCIN HCL 1,500 MG in SODIUM CHLORIDE 0.9% 500 ML IV SCH ×2 (09:53→17:18)
[2020-07-08] MEDS: cefTRIAXone SODIUM 2,000 MG in DEXTROSE 5% 50 ML IV SCH ×2 (09:54→21:34)
[2020-07-08 10:06] LABS: Hemoglobin 15.4 g/dL (14.0-18.0); Immature Granulocytes # (auto) 0.02 K/uL (0.00-0.02); Immature Granulocytes % (auto) 0.2 %; Lymphocytes # (auto) 1.25 K/uL (1.2-3.4); Lymphocytes % (auto) 14.3 %; Mean Corpuscular Hemoglobin 30.2 pg (25-34); Mean Corpuscular Hgb Conc 35.8 g/dL (32-36); Mean Corpuscular Volume 84.3 fL (80-100); Mean Platelet Volume 9.8 fL (7.4-10.4); Monocytes % (auto) 2.3 %; Neutrophils % (auto) 83.2 %; Platelet Count 275 K/uL (130-400); RDW Coefficient of Variation 13.6 % (11.5-14.5); RDW Standard Deviation 42.5 fL (36.4-46.3); White Blood Count 8.77 K/uL (4.8-10.8)
[2020-07-08 10:33] LABS: Creatinine Clr Calc Pharmacy 127.1 ml/min; Est GFR (African American) 127.9; Est GFR (Non-African American) 110.4
[2020-07-08 11:53] LABS: Lyme Ab IgG w/WB Rflx Negative (Negative)
[2020-07-08 12:31] LABS: Lyme Ab IgM w/WB Rflx Equivocal (Negative)
--- NOTE | 2020-07-08 12:32 | Progress Notes ---
DATE: 07/08/2020 REASON FOR CONSULTATION: Headache, change in mental status. 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 On this background about 3 or so weeks ago, he received a COVID vaccine, a little less time than that he was in [place] and he noted the gradual onset of a persistent headache, which was not particularly severe. Over time, he developed a throbbing morning headaches with light and sound sensitivity. No nausea, vomiting, change in vision. The headaches would improve with [id number] medications. At one point approximately 9 days ago, he sought medical attention at our Emergency Room because of the persistence of the headache. At that time, his exam looked unremarkable. His blood work was said to be unremarkable. CT of the head was unremarkable and he was discharged to home. He was treated symptomatically for headache with Decadron, Benadryl, fluids and Compazine. After this time, he was communicating with his home renewable energy broker who prescribed several things including Zyrtec, Periactin. He had given the patient a prescription for prednisone, which he said if the headache had persisted, he could continue to take. The headache had persisted and on Friday morning, which was the day of admission, he took 30 mg of prednisone. He noted then a numbness, which ascended his right leg into his trunk, into his arm and into the right side of his tongue that lasted about 5 minutes. He was not weak per se during that time, that resolved, he did have a headache at that time and then he developed difficulty with word finding. An ambulance was called and he was brought to the Emergency Room. He was described in the Emergency Room as being slightly agitated and asking if he was becoming schizophrenic. The ER doctor gave him some Ativan and he promptly improved. He has no prior history of throbbing headaches. He has not had any rash, head injury. He has not had any new medications or medication withdrawal. He typically drinks on the weekends and tandem drink up to 15 drinks a night. His last alcohol intake was the day prior to admission, which he probably drank the same quantity as previously described and then prior to that probably about a week. He was not taking any recreational drugs. No one else was ill, he did not have fevers, chills, sweats, weight loss, sore throat, ear pain, vomiting, diarrhea. He has no history of prior neurologic deficits. He has no history of seizure. His evaluation in the Emergency Room yesterday consisted of imaging and labs. His COVID test was negative. Influenza A and B and RSV were negative. His white count was 11.23 and now is normal. His absolute lymphocyte count was 4.87, monocytes 0.61. PT, PTT normal. Chemistry profile was notable for a lactic acid of 3.1, glucose of 114. Serum sodium of 135, calcium 10.2. Transaminases normal. Total protein 8.8. Prolactin 12.53. Urinalysis was notable for specific gravity of 1.041. Toxicology screen was negative. CTA of head and neck were unremarkable. No significant stenosis, occlusion or aneurysm. MRI of the brain with and without contrast was unremarkable. Lumbar puncture was attempted in the Emergency Room, but was technically difficult and deferred to Radiology. Radiology initially had a "dry tap" and then was able to successfully obtain fluid with a collection of 5 mL of bloody CSF. The CSF was bloody. It was xanthochromic when spun. The white count was 1404. The red count was 40,900. Only 1 tube was able to be performed. The mononuclear cells were 63. The polynuclear were 37 and the glucose was 67 with a peripheral blood sugar of 114. The CSF total protein was 610. The adjustment for white cells given the red cells still would keep the CSF white count of 1300 at least and the CSF total protein in the 550 range. CSF Lyme is pending. CSF cryptococcus, was not detected. CSF, CMV, PCR was not detected. Enterovirus negative, E. coli negative, H. flu negative. HSV 1 negative. HSV 2 negative. HHZ6 not detected. Listeria monocytogenes negative. Neisseria meningitidis not detected. Parechovirus not detected. Strep agalactiae not detected. Strep pneumonia negative and VSV PCR not detected. Gram stain was notable for white cells, no organisms. Culture is pending. EEG was normal. There was electrode pop artifact. PAST MEDICAL HISTORY: As above. PAST SURGICAL HISTORY: [place] teeth extraction. SOCIAL HISTORY: The patient does not smoke and drinks alcohol as previously described. No illicit drug use. He is at [employer] with an [employer] major. FAMILY HISTORY: No history of DVT, early stroke, ID. No family history of migraine. ALLERGIES: No allergies. MEDICATIONS: No meds on admission. PHYSICAL EXAMINATION: VITAL SIGNS: Blood pressure 134/62, pulse 77, respirations 18, temperature 36.8, 98% on room air. GENERAL: The patient is awake and alert, in absolutely no distress. He is oriented x3, no right/left confusion and no aphasia. HEART: No heart murmurs. Heart is regular rate and rhythm. No sinus tenderness. No jaw click. NECK: Supple. NEUROLOGIC: Pupils are equal, round, reactive to light. There is no papilledema. Normal visual fraga, motility, facial sensation and symmetry. There is normal bulk and tone. Full strength, no drift. Normal rapid alternating movements. The left knee and ankle jerk are mildly depressed compared to right. There is no clonus and toes are downgoing. Hnuaad-mt-vofl and krem-fi-tuko are normal. Sensation is intact to light touch and temperature and vibration. There is some mild ecchymosis in the region of the lower lumbar spine. No rashes are noted. No calf swelling or tenderness is noted. IMPRESSION: Meningitis, likely viral given mononuclear predominance, negative Gram stain. The patient does not appear to be critically ill as he would be if he had had an untreated bacterial meningitis. The presence of xanthochromia which should not be from a traumatic lumbar puncture did raise the question in my mind given his change in behavior and the clinical question of a seizure, (which I think is unlikely )raise the question of whether or not this could be HSV. The PCR HSV1,2 are negative in that regard.MRI of brain and EEG do not lend support to that. I have recommended to the hospital team that they obtain an Infectious Disease evaluation and consultation. I suspect they will recommend empiric antibiotic treatment until the cultures are negative. They may recommend an ongoing use of acyclovir/anti viral. It is possible that we will need to repeat a lumbar puncture in several days to assess for a decreased white count and to check for other etiologies such as more extensive culturing, AFB, fungal tuberculous, again the patient does not appear ill enough to suggest those. This patient's headache while he was ill, was migrainous in nature. The numbness of the right arm and leg, which ascended and involved the tongue sounds very much a migrainous accompaniment. The language dysfunction would be less likely, but still possible. I have spoken to the patient's parents. We will follow with you. SHANTEL
[2020-07-09] MEDS: dexAMETHasone 4 MG in SYRINGE 0 ML IV SCH ×3 (00:04→13:13)
[2020-07-09] MEDS: VANCOMYCIN HCL 1,500 MG in SODIUM CHLORIDE 0.9% 500 ML IV SCH ×2 (02:48→09:24)
[2020-07-09] MEDS: ACYCLOVIR SOD 750 MG in DEXTROSE 5% 250 ML IV SCH (05:31)
--- NOTE | 2020-07-09 08:12 | Hospitalist Progress Note ---
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 He ended following up with his family medicine provider who had recommended a trial of 30 mg of prednisone. After taking the medication the patient began to experience numbness and tingling, restless, and his headache returned. He was reevaluated in the emergency department and there was concern for altered mental status routine labs were obtained including pro calcitonin, Covid, flu, urine tox, CBC, CMP and within normal limits with the exception of a lactate of 3.1. Given his history of headaches, altered mental status on presentation, and elevated lactate a work-up for meningitis was started. Brain MRI was negative, LP was performed demonstrating traumatic tap, xanthochromia, elevated total protein, and elevated white blood cells. Viral, bacterial, and fungal PCR was negative, and cultures are pending. Neurology was consulted and given the degree of xanthochromia and elevation in white blood cells they feel as if the patient is contracted viral meningitis and are recommending consultation with ID.. -Neurology consulted following recommendations -neuro syx at presentation are consistent with a migraine -Infectious disease consulted appreciate recommendations -Continue CTX/Vancomycin pending culture resolution -Continue dexamethasone pending culture resolution -Continue acyclovir pending ID recommendations -Headache control with IV toradol. FENa: Regular diet Code Status: Full code DVT PPX: Not indicated at present PT/OT: Not indicated Dispo: Telemetry Sanjiv Tovar MD PGY 2, FCM This chart was completed utilizing Chance (app) voice recognition software. Grammatical errors, random word insertions, pronoun errors, and in complete sentences are an occasional consequence of the system. Any questions or concerns about the content, text, or information contained within the body of this dictation should be addressed directly to the physician for clarification. (2) Numbness and tingling: (3) Restlessness: (4) Elevated serum lactate dehydrogenase: (5) Viral meningitis: Admission and Anticipated Discharge Date Admission Date: July 07, 2020 Results & Data Results & Data ([facility]) Vital Signs (Past 12 Hours) Vital Signs Temp Pulse Pulse Pulse Resp BP BP 07/09/20 07:00 36.8 C 71 18 135/63 07/09/20 03:00 36.6 C 63 109/57 L 07/09/20 00:00 36.5 C 65 64 124/66 07/08/20 21:36 36.3 C L 61 19 125/68 Pulse Ox 07/09/20 07:00 96 07/09/20 03:00 96 07/09/20 00:00 96 07/08/20 21:36 97 (1) Headache Headache chronicity pattern: unspecified pattern Headache type: unspecified Intractability: not intractable Qualified Code(s): R51.9 - Headache, unspecified
[2020-07-09] MEDS: cefTRIAXone SODIUM 2,000 MG in DEXTROSE 5% 50 ML IV SCH (09:24)
[2020-07-09 09:29] LABS: Basophils # (auto) 0.01 K/uL (0-0.2); Basophils % (auto) 0.1 %; Hemoglobin 14.8 g/dL (14.0-18.0); Immature Granulocytes # (auto) 0.04 K/uL (0.00-0.02); Immature Granulocytes % (auto) 0.2 %; Lymphocytes # (auto) 1.69 K/uL (1.2-3.4); Lymphocytes % (auto) 9.3 %; Mean Corpuscular Hgb Conc 35.2 g/dL (32-36); Mean Platelet Volume 9.8 fL (7.4-10.4); Monocytes # (auto) 0.46 K/uL (0.11-0.59); Monocytes % (auto) 2.5 %; Neutrophils # (auto) 15.94 K/uL (1.4-6.5); Neutrophils % (auto) 87.9 %; Platelet Count 270 K/uL (130-400); RDW Coefficient of Variation 13.8 % (11.5-14.5); RDW Standard Deviation 43.2 fL (36.4-46.3); Red Blood Count 4.94 M/uL (4.7-6.1); White Blood Count 18.14 K/uL (4.8-10.8)
[2020-07-09] MEDS ORDERED: VANCOMYCIN TROUGH ONE (09:30)
[2020-07-09 09:46] LABS: Albumin Level 4.3 gm/dl (3.4-5.0); BUN Creatinine Ratio 15.8 (10-20); Calcium 9.9 mg/dl (8.5-10.1); Creatinine Clr Calc Pharmacy 154.1 ml/min; Est GFR (Non-African American) 126.8; Potassium 3.8 mmol/L (3.5-5.1)
[2020-07-09 09:49] LABS: Albumin Globulin Ratio 1.2 (0.9-2); Bilirubin,Total 0.4 mg/dl (0.2-1); Globulin 3.5 gm/dl (2.5-4.0); Total Protein 7.8 gm/dl (6.4-8.2)
--- NOTE | 2020-07-09 10:37 | XCELERA ---
[id number]
--- NOTE | 2020-07-09 10:46 | Pharmacy Report ---
Pharmacy Abx Dose Short Note - Date of Service July 09, 2020 - Assessment & Plan Assessment 20 year old M receiving IV Vancomycin, ceftriaxone, acyclovir for treatment of meningitis Day # 3 of antimicrobial therapy. CSF - no growth to date -Neurology consulted following recommendations -neuro syx at presentation are consistent with a migraine -Infectious disease consulted -Continue CTX/Vancomycin pending culture resolution -Continue acyclovir pending ID recommendations Plan Vancomycin * Trough level of 12.9 mcg/mL is subtherapeutic * Change to 1750 mg IV every 8 hours * Goal trough level for meningitis : 15 to 20 mcg/mL * Trough level ordered for: 07/10/20 prior to 0900 dose Pharmacy will continue to follow and will adjust dose/frequency as necessary. Thank you.
--- NOTE | 2020-07-09 12:06 | Discharge Summary ---
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 He has taken tylenol in past with improvement in headache. Before the ED visit he noted some tremors as well and had not been sleeping well over last several weeks. He had taken decongestants for possible sinus headache as recommended by the urgent care clinic. Due to persistent headache, he was referred to ED by his PCP in [place]. He had evaluation done with imaging which were negative. He received treatment for migraine and discharged home. In the interim he was placed on steroids by his PCP. He took his first dose today at noon followed by having having numbness/tingling along with headache on half of his face and his toes. So he called EMS and was brought to the ED. Per EMS the patient was having slurred speech and right facial droop when they arrived. Per ED physician note - Patient is able to speak he is alert and oriented. Patient keeps repeatedly saying "I cannot do this" and keeps asking "am I schizophrenic?". He received IV toradol, benadryl, reglan and ativan so far in the ED. Neurologist - Dr. Flowers was contacted and CT head and neck angiogram, MRI brain and EEG was recommended. At the time of my visit - patient was very restless in bed and his speech was slurred. He was cooperative and able to answer questions but kept closing his eyes during conversation. Admission Exam Per Admitting Provider Constitutional: well developed, well nourished and + acute distress Restless in bed. Eyes: PERRL, conjunctivae normal, anicteric sclerae ENMT: external ear and nose normal, oropharynx normal Neck: trachea midline, no thyromegaly Respiratory: normal respiratory effort, lungs clear to auscultation Cardiovascular: RRR, no murmur, no edema Chest (Breasts): Chest: normal inspection of chest Gastrointestinal (Abdomen): normal bowel sounds, soft, nontender, no hepatosplenomegaly Musculoskeletal: no cyanosis or clubbing, extremities motor strength 5/5 Skin: no rashes, warm and dry Neurologic: patellar DTR's 2+ bilat, sensation intact Unable to do extensive neuro exam due to him being restless in bed. Principal Diagnosis Aseptic viral meningitis, migraine, adverse reaction to prednisone Discharge Exam General: No acute distress HEENT: Normocephalic atraumatic Neck: No significant lymphadenopathy, trachea midline, normal to visual inspection Cardiac: Regular rate and rhythm, normal S1, normal S2, I did not appreciated any significant murmurs rubs or gallops, I did not appreciate any significant pedal edema, No calf tenderness, capillary refill is less than 3 seconds Respiratory: Clear to auscultation bilaterally with symmetrical chest rise, I did not appreciate any significant wheezes, rales, rhonchi, no increased work of breathing GI: Normal bowel sounds, soft, nontender in all 4 quadrants, nondistended MSK: No sensory or motor changes, moves all extremities without issue, extremities are warm and well-perfused Skin: [place], clean, dry, intact. Neuro: Alert and oriented x4, CN II through XII grossly intact, PERRLA, EOMI, sensory function intact, motor function intact, cerebellar function intact Psych: Calm, cooperative, logical thought process Discharge Data Allergies Allergy/AdvReac Type Severity Reaction Status Date / Time No Known Allergies Allergy Unverified 06/29/20 13:10 Consultations 07/07/20 17:44 ED Decision to Admit Stat 07/07/20 22:30 Consult Neurology Routine 07/08/20 10:07 Consult Infectious Diseases Routine 07/09/20 08:06 Consult Infectious Diseases Stat Ordered Studies 07/07/20 14:49 CT angio head w con Stat CT angio neck with con Stat CT head/brain wo con Stat 07/07/20 17:29 MR brain wo/w con Stat 07/07/20 19:13 FL lumbar puncture diagnostic Routine Hospital Course (1) Headache: 20 y/o M [employer] student here with intactable headache, paresthesia, diagnosed with aseptic meningitis #Headache/Paresthesia/concern of facial droop/restlessness diagnosed with viral meningitis Patient with a 1 week history of chronic headache he was previously evaluated by the emergency department with a negative work-up and subsequently discharged. He ended following up with his family medicine provider who had recommended a trial of 30 mg of prednisone. After taking the medication the patient began to experience numbness and tingling, restless, and his headache returned. He was reevaluated in the emergency department and there was concern for altered mental status routine labs were obtained including pro calcitonin, Covid, flu, urine tox, CBC, CMP and within normal limits with the exception of a lactate of 3.1. Given his history of headaches, altered mental status on presentation, and elevated lactate a work-up for meningitis was started. Brain MRI was negative, LP was performed demonstrating traumatic tap, xanthochromia, elevated total protein, and elevated white blood cells. Viral, bacterial, and fungal PCR was negative, and cultures are pending. Neurology was consulted and given the degree of xanthochromia and elevation in white blood cells they feel as if the patient is contracted viral meningitis and are recommending consultation with ID. We were unable to obtain a infectious disease consult over the weekend however I spoke to Dr. Gomes with [facility] infectious disease and briefed him on the case. He stated the patient's presentation could be consistent with an aseptic meningitis, of the organisms that cause aseptic meningitis it is prudent that we rule out herpes, syphilis, Lyme, HIV. So far we have ruled out herpes and Lyme, will obtain lab work for syphilis and HIV. Given the patient's benign clinical course, lack of symptoms, afebrile nature, he feels as if it safe to discharge the patient later this evening. Recommending follow-up with a primary care provider within a week of discharge. He is happy to see the patient as an outpatient. all antibiotics and antivirals were discontinued on discharge. #Right to left atrial shunt visualized on echo An echocardiogram was performed to complete the work-up of this patient's altered mental status. His echo demonstrated normal LV size with hyperdynamic systolic function EF greater than 70%, no regional wall motion abnormalities, no LVH, no significant diastolic dysfunction. A right to left inter atrial shunt was noted with agitated saline administration, no defect visualized on 2D images PFO versus ASD. Will need follow-up with cardiology on a nonemergent basis as an outpatient Sanjiv Tovar MD PGY 2, FCM This chart was completed utilizing [employer]i voice recognition software. Grammatical errors, random word insertions, pronoun errors, and in complete sent ences are an occasional consequence of the system. Any questions or concerns about the content, text, or information contained within the body of this dictation should be addressed directly to the physician for clarification. (2) Numbness and tingling: (3) Restlessness: (4) Elevated serum lactate dehydrogenase: (5) Viral meningitis: Total Time Total Time Spent Total Time Spent (In Minutes): 67 Discharge Plan Discharge Items Patient Disposition: Home - Self-Care Reason For Visit: HEADACHE, NUMBNESS/TINGLING, SLURRED SPEECH Discharge Diagnosis: Aseptic viral meningitis Activity: Resume your previous activity Non-emergency contact: Primary Care Provider Call non-emergency contact if: you have any medication questions, your symptoms worsen, your pain is unusual for you and your temperature is above 101 Follow-up/Referrals: [place] [Primary Care Provider] - Diet: Regular Addtl Attending Provider Instructions: Care instructions: You were admitted to [facility] for treatment of head pain and altered mental status. On presentation to the hospital you had an elevated lactate level indicating a potential infection. A lumbar puncture was obtained and was suspicious for a viral meningitis. It is unclear whether or not you had a viral meningitis versus a migraine and side effects from prednisone therapy. We performed a number of tests and excluded the concerning viruses bacteria and fungi associated with meningitis. Given the fact that you were symptom-free, your vital signs are stable, and your laboratory work is normal we feel as if it safe to discharge you with follow-up with your primary care provider in a week. Upon discharge we want you to be alert for concerning signs or symptoms including but not limited to headaches, fevers unresponsive to NSAIDs, shaking chills, persistent nausea, vomiting, or diarrhea, significant unrelenting pain, severe headache, chest pain, chest pressure, worsening or lack of improvement of the symptoms for which they presented. Should you experience any of these you should proceed directly to the emergency department for further evaluation and management. TO DO -Counseled to be alert for concerning signs or symptoms including but not li mited to fevers unresponsive to NSAIDs, shaking chills, persistent nausea, vomiting, or diarrhea, significant unrelenting pain, severe headache, chest pain, chest pressure, worsening or lack of improvement of the symptoms for which they presented. Should you experience any of these they are to contact our office for further instruction, return for follow-up, or proceed directly to the emergency department for further evaluation and management. -Follow-up with neurology -Follow-up with cardiology -Follow-up with primary care provider A discharge summary will be sent to your primary care physician to ensure continuity of care. Please bring this discharge summary with you to your next office appointment so that your provider can review it at that time. Follow-up appointments: - Keep all your follow-up appointments as already scheduled. If you cannot make an appointment, notify your provider. - Please call to request a follow-up appointment with your primary care physician within one week of discharge. Please let us know if you are unable to obtain an appointment Medications: - Your medication list has been reviewed and reconciled upon discharge to ensure accuracy and continuity of care. - You are provided with a list of all your current medications at this time. Please review this list closely and make note of any changes. - Please take all of your medications exactly as prescribed. - Tell your primary care provider if you cannot afford your medications. - Call your primary care provider if you are having any side effects or any other problems. - Call your primary care provider before taking any over the counter medications or supplements, including herbals and vitamins, because some of these may interact with your current medications and/or make your symptoms worse. Symptoms: Please call your primary care provider for symptoms including, but not limited to: fevers (temperatures greater than 100.4), chills, intractable nausea or vomiting, diarrhea, rash, shortness of breath, bleeding, pain, or if you experience any worsening of the symptoms that brought you to the hospital. For EMERGENCY and VERY SERIOUS health-related issues, such as chest pain, shortness of breath, or sudden onset of the symptoms that brought you to the hospital, you may need to call 911 or go directly to the Emergency Room It has been our privilege to take care of you during your hospital stay. And Above All Else Feel Better! Best Wishes, Sanjiv Tovar MD PGY2 Resident, Family & Community Medicine [facility] - [address], [address] MC: [place] [address] Pending Studies at Discharge: No Stand-Alone Forms: My [facility], Smoking Cessation Medications and DC Order Prescriptions: Continued multivitamin Tablet 1 tab PO QAM RF: 0 Discharge Orders: Discharge Order (Routine); Ordered 07/09/20 Ordered By: Sanjiv Tovar Admission Data Admit Date/Time: 07/07/20 18:59 Attending Provider: Aracelis Dale Admit Provider: Aracelis Dale Primary Care Provider: [facility] Other Providers: Aracelis Dale ; Anne-Marie Maldonado ; Jem Mendes ; Cayden Stockton ; Tony Tovar I. ; Raul Reyes II ; Angie Doran ; Agus Arndt Other Interventions: Discharge Summary Assessment (RN) Last Done: 07/09/20 16:17 Supervising Physician Co-Signing Physician Notes Resident Physician Supervision Note: I independently interviewed and examined the patient and verified the mccloud history and physical, reviewed labs and image studies, discussed the case with the resident Dr. Sanjiv Tovar and agree with the findings and care plan. Resident Activity Tracking Resident Involvement: Resident Care Provided Care Provided: Adult Hospital Medicine
--- NOTE | 2020-07-09 13:47 | Progress Notes ---
DATE: 07/09/2020 SUBJECTIVE: I am seeing the patient in followup of what appears to be aseptic meningitis. His cultures to date have been negative. He had an echo yesterday to look for an embolic source or vegetation and the report is pending. Sed rate was normal. TSH was normal and he is not diabetic. No further headache, no new weakness or numbness. LABORATORY DATA: Today shows a white count of 18, which I suspect is related to his dexamethasone. Echo shows a right to left shunt with agitated saline. No defect visualized on 2D images PFO versus ASD. PHYSICAL EXAMINATION: VITAL SIGNS: 124/68, 83, 18, 37. GENERAL: The patient is awake and alert. NECK: Supple. NEUROLOGIC: Speech and language are normal. Naming is normal. Pupils are equal, round and reactive to light. No papilledema. Normal fraga, motility. Facial symmetry. Speech and language are normal. Motor 5/5, no drift. Normal rapid alternating movements. Symmetric reflexes intact, symmetric ankle jerks, downgoing toes. [id number] and [id number] is normal. There is intact light touch. IMPRESSION: Aseptic meningitis. Dr. Tovar has spoken to Infectious Disease at [place], Dr. Macdonald. He recommends additional lab testing for HIV and syphilis. I have added to that an SUSANA and an anticardiolipin antibody. I do not clinically think the patient has a vasculitis to account for the elevated white cells in the spinal fluid. Per Dr. Tovar Infectious Disease did not recommend a followup lumbar puncture and provide the cultures were negative. Today, the patient could be discharged without acyclovir. The patient should see me in followup in my office in 2-3 weeks. He should certainly contact us if recurrent headache, weakness or numbness. I believe he had some migrainous symptoms with some complicated migraine symptoms associated with the meningeal process. I do not think the patient needs any migraine prophylaxis. Asymptomatic PFO versus ASD. The patient should be referred to Cardiology for further evaluation. I think this is unrelated to his event.
[2020-07-09] MEDS ORDERED: VANCOMYCIN HCL 1,750 MG in SODIUM CHLORIDE 0.9% 500 ML IV SCH (17:00)
[2020-07-10] MEDS ORDERED: VANCOMYCIN TROUGH ONE (08:30)
[2020-07-12 01:11] LABS: 18KDIGG Band REACTIVE; 23KDIGG Band NON-REACTIVE; 23KDIGM Band NON-REACTIVE; 28KDIGG Band NON-REACTIVE; 30KDIGG Band NON-REACTIVE; 39KDIGG Band NON-REACTIVE; 39KDIGM Band NON-REACTIVE; 41KDIGG Band NON-REACTIVE; 41KDIGM Band NON-REACTIVE; 45KDIGG Band NON-REACTIVE; 58KDIGG Band NON-REACTIVE; 66KDIGG Band NON-REACTIVE; 93KDIGG Band REACTIVE; Lyme Antibodies, WB IgG NEGATIVE (NEGATIVE); Lyme Antibodies, WB IgM NEGATIVE (NEGATIVE)
[2020-07-15 20:31] LABS: Lyme IgG Band Pattern CSF DNR; Lyme IgG CSF NO BANDS DETECTED; Lyme IgM Band Pattern CSF DNR; Lyme IgM CSF NO BANDS DETECTED
== END 2020-07-09 17:28 | disposition home or self-care (01) ==
LOC: ED 14:41 → 2S 14:41